=== PATIENT | female | born 1940 | race Caucasian/White ===

== ENCOUNTER 2018-10-29 07:24 | Outpatient (CLI) | payer MEDICARE, BC, SELFPAY ==
[2018-10-29 10:45] LABS: Anion Gap 6.4 mmol/L (3-11); BUN 16 mg/dL (7-18); CO2 31.6 mmol/L (21.0-32.0); CREATININE 0.99 mg/dL (0.55-1.02); Calcium 9.2 mg/dL (8.5-10.1); Chloride 105 mmol/L (98-107); Cholesterol 151 mg/dL (50-200); Estimated GFR 54.54 (mL/min/1.73m2); Glucose 98 mg/dL (70-100); HDL Cholesterol 64 mg/dL (40-60); LDL CHOLESTEROL 70 mg/dL (<100); Potassium 3.8 mmol/L (3.5-5.1); Sodium 143 mmol/L (136-145); Triglyceride 102 mg/dL (30-150)
== END 2018-10-29 07:44 ==
PROVIDERS: PCP Nurse Practitioner Family; Visit Provider Student in an Organized Health Care Education/Training Program
DX: E78.5 Hyperlipidemia, unspecified (principal); I10 Essential (primary) hypertension; I20.8 Other forms of angina pectoris
CPT/HCPCS: 36415; 80048; 80061; 83721

== ENCOUNTER 2018-11-24 07:38 | Outpatient (CLI) | payer MEDICARE, BC, SELFPAY ==
[2018-11-24 07:59] LABS: Abs Immature Grans 0.02 k/cumm (0.0-0.09); Absolute Basophil Count 0.04 k/cumm (0.0-0.2); Absolute Eosinophil Count 0.22 k/cumm (0.0-0.7); Absolute Lymphocyte Count 2.17 k/cumm (1.2-3.4); Absolute Monocyte Count 0.46 k/cumm (0.11-0.7); Absolute Neutrophil Count 4.04 k/cumm (1.2-6.7); Basophils % 0.6; Eosinophils % 3.2; HCT 42.9 % (36.0-46.0); HGB 13.8 g/dL (12.0-15.5); Immature Grans % 0.3; Lymphocytes % 31.2; Mean Corp. HGB Concentration 32.2 g/dL (32.0-36.0); Mean Corpuscular Volume 90.1 fL (80-95); Monocytes % 6.6; Neutrophils % 58.1; Platelet Count 274 x1000/uL (130-400); RBC 4.76 m/cumm (4.00-5.20); RBC Distribution Width 14.3 % (11.7-14.6); White Blood Cell Count 6.95 k/cumm (4.4-10.8)
== END 2018-11-24 07:58 ==
PROVIDERS: PCP Nurse Practitioner Family; Visit Provider Internal Medicine Gastroenterology
DX: K92.2 Gastrointestinal hemorrhage, unspecified (principal)
CPT/HCPCS: 36415; 85025

== ENCOUNTER → 2019-02-16 13:41 | Outpatient (BNVA) | payer MEDICARE, BC, SELFPAY | PROVIDERS: PCP Nurse Practitioner Family; Visit Provider Student in an Organized Health Care Education/Training Program | DX: I20.8 Other forms of angina pectoris (principal); Z95.818 Presence of other cardiac implants and grafts; I10 Essential (primary) hypertension; E78.5 Hyperlipidemia, unspecified | CPT/HCPCS: 99213 ==

== ENCOUNTER → 2020-02-07 11:03 | Outpatient (BNVA) | payer MEDICARE, BC, SELFPAY | PROVIDERS: PCP Nurse Practitioner Family; Referring Provider Nurse Practitioner Family; Visit Provider Internal Medicine Cardiovascular Disease | DX: I25.10 Atherosclerotic heart disease of native coronary artery without angina pectoris (principal); Z95.5 Presence of coronary angioplasty implant and graft; I10 Essential (primary) hypertension | CPT/HCPCS: 99204; 99215 ==

== ENCOUNTER 2020-09-14 21:16 | Outpatient (REF) | payer MEDICARE, BC, SELFPAY ==
[2020-09-14 18:37] LABS: ALT 38 U/L (14-59); AST 28 U/L (15-37); Albumin 3.5 g/dL (3.4-5.0); Alkaline Phosphatase 101 U/L (46-116); Anion Gap 8.6 mmol/L (3-11); BUN 17 mg/dL (7-18); Bilirubin, Total 0.7 mg/dL (0.2-1.0); CO2 29.4 mmol/L (21.0-32.0); CREATININE 1.07 mg/dL (0.55-1.02); Calcium 9.1 mg/dL (8.5-10.1); Calculated LDL 55 mg/dL (<100); Chloride 102 mmol/L (98-107); Cholesterol 137 mg/dL (<200); Glucose 115 mg/dL (74-106); HDL Cholesterol 61 mg/dL (40-60); Potassium 3.7 mmol/L (3.5-5.1); Sodium 140 mmol/L (136-145); Total Protein 6.7 g/dL (6.4-8.2); Triglyceride 108 mg/dL (<150)
== END 2020-09-14 21:36 ==
LOC: NCHCN 21:16
PROVIDERS: PCP Nurse Practitioner Family; Visit Provider Nurse Practitioner Family
DX: Z13.220 Encounter for screening for lipoid disorders (principal); I10 Essential (primary) hypertension
CPT/HCPCS: 80053; 80061

== ENCOUNTER → 2021-02-05 09:32 | Outpatient (BNVA) | payer MEDICARE, BC, SELFPAY | PROVIDERS: PCP Nurse Practitioner Family; Referring Provider Nurse Practitioner Family; Visit Provider Internal Medicine Cardiovascular Disease | DX: I25.10 Atherosclerotic heart disease of native coronary artery without angina pectoris (principal); Z95.5 Presence of coronary angioplasty implant and graft; I10 Essential (primary) hypertension | CPT/HCPCS: 99214 ==

== ENCOUNTER 2021-10-17 19:44 | Outpatient (REF) | payer MEDICARE, BC, SELFPAY ==
[2021-10-17 20:09] LABS: Anion Gap 7.6 mmol/L (3-11); BUN 16 mg/dL (7-18); CO2 28.4 mmol/L (21.0-32.0); CREATININE 0.9 mg/dL (0.55-1.02); Calcium 9.2 mg/dL (8.5-10.1); Chloride 104 mmol/L (98-107); Glucose 123 mg/dL (74-106); Potassium 3.7 mmol/L (3.5-5.1); Sodium 140 mmol/L (136-145)
== END 2021-10-17 19:45 | disposition home or self-care (01) ==
LOC: LBN 19:44
PROVIDERS: PCP Nurse Practitioner Family; Visit Provider Nurse Practitioner Family
DX: I10 Essential (primary) hypertension (principal)
CPT/HCPCS: 80048

== ENCOUNTER 2022-03-31 10:15 | Day surgery (SDC) | payer MEDICARE, BC, SELFPAY ==
[2022-03-31 10:47] VITALS: BP 148/69; PULSE 52; RESP 16; TEMP 36.5; O2SAT 98
[2022-03-31] MEDS: Tropicam./Phenyleph. (1/2.5%) 5 ML BTL OS ×3 (10:58→11:14)
--- NOTE | 2022-03-31 11:24 | W.ANESPRE ---
General Info Date of Service Date Performed: 03/31/22 Height: 5 ft 4 in Weight: 97.1 kg Body Mass Index (BMI): 36.7 Surgical Procedure: Operation Date: 03/31/22 13:40 Proposed Procedure Side Surgeon p Cataract Extraction with IOL Implant w/Glaucoma Stent Left Domenico Cristina MD Meds Allergies and Home Medications Allergies Allergy/AdvReac Type Severity Reaction Status Date / Time No Known Allergies Allergy Verified 03/31/22 10:55 Home Medication Medication Instructions Recorded aspirin 81 mg tablet,delayed 81 mg PO HS 03/15/15 release (Aspir-) omega-3 fatty acids 300 mg capsule 300 mg PO QAM 12/08/15 (Fish Oil) cholecalciferol (vitamin D3) 50 2,000 unit PO DAILY #30 tab-caps 11/26/16 mcg (2,000 unit) capsule (Vitamin D3) latanoprost 0.005 % eye drops 1 drp ophthalmic (eye) ONCE #1 drp 11/26/16 losartan 100 1 tab-cap PO DAILY #30 tab-caps 11/26/16 mg-hydrochlorothiazide 12.5 mg tablet (Hyzaar) metoprolol tartrate 25 mg tablet 25 mg PO BID #60 tab-caps 01/25/19 acetaminophen 500 mg tablet 1,000 mg PO DIRECTED PRN 03/28/22 Current Visit Medications: Current Medications Generic Name Dose Route Start Last Admin Trade Name Freq PRN Reason Stop Dose Admin Acetaminophen 1,000 mg 03/31/22 06:00 Acetaminophen 500 Mg Tab PO Q4H PRN PRN Miscellaneous Medication 0 ml 03/31/22 06:00 Prednisolone 1%, Moxifloxacin 0.5%, Nepafenac 0.1% 5ml Btl OS DIRECTED [facility] Miscellaneous Medication 0 ml 03/31/22 06:00 03/31/22 11:14 Tropicam./Phenyleph. (1/2.5%) 5 Ml Btl OS 1 drp DIRECTED NOEL Administration Tetracaine HCl 0 ml 03/31/22 06:00 Tetracaine 0.5% 4 Ml Btl OS DIRECTED [facility] Medical History Medical History (Updated 03/31/22 @ 10:55 by Jammie Velez) CAD (coronary artery disease) Cataract History of benign breast biopsy right HLD (hyperlipidemia) HTN (hypertension) Hx of fracture of ankle left 2000 Surgical History Surgical History (Updated 03/31/22 @ 10:55 by Jammie Velez) History of heart artery stent 2017 History of intestinal surgery clips for repair of rupture Hx of colonoscopy Hx of hysterectomy Tobacco Smoking/Tobacco Use Status: Never Alcohol Alcohol Intake: never Substance Use Substance use: Never Substance use type: does not use Vital Signs and Lab Results Vital Signs Most Recent Vital Signs in EMR: Most Recent Vital Signs Temp Pulse Resp BP Pulse Ox 36.5 C 52 L 16 148/69 H 98 03/31/22 10:47 03/31/22 10:47 03/31/22 10:47 03/31/22 10:47 03/31/22 10:47 Lab Results Blood Type / Crossmatch: No Data to Display Complete Blood Count: No Data to Display Complete Metabolic Panel: No Data to Display Liver Function Panel: No Data to Display Coagulation Panel: No Data to Display Cardiac Panel: No Data to Display Arterial Blood Gas: No Data to Display Venous Blood Gas: No Data to Display Pancreas Panel: No Data to Display Thyroid Panel: No Data to Display Infectious Disease: No Data to Display Blood Cultures: No Data to Display Toxicology Panel: No Data to Display Imaging and Studies Imaging and Studies Study information below may be from another EMR and interpreted by another provider. Please see original notes in EMR for more complete details. Stress Test Summary: 09/24/16 Impressions: Positive stress test after maximal exercise with reproduction of symptoms. Summary: 1. Myocardial perfusion imaging: There is a large sized, moderately intense, partially reversible defect involving the mid anterior and apical anterior, apical inferior, mid anterolateral, apical, apical lateral, and apical septal wall(s). and myocardial infarction and ischemia in the distribution of left anterior descending and left circumflex coronary artery. Overall ischemia: moderate. 2. The calculated left ventricular ejection fraction after stress: 51%. LV global systolic function is low normal. There is hypokinesis involving the apical wall(s) of the left ventricle. 3. Stress: The target heart rate was achieved. The heart rate response to stress is normal. There is a normal resting blood pressure with an appropriate response to stress. Stress-induced typical chest pain which resolved spontaneously. Exercise capacity is mildly diminished for age. Recommendations: 1. Cardiac catheterization should be performed in order to evaluate coronary artery disease. This procedure has been arranged and discussed with the patient. 2. Medical management is recommended. Cardiac Cath with stenting done 2016 Anesthesia Assessment and Plan Anesthesia History Personal History: No History of Anesthesia Complications Family History: No Family History of Anesthesia Complications Exercise Tolerance Exercise Tolerance: Metabolic Equivalents>4 Pertinent Negatives Pertinent Negatives: No Major Cardiovascular Symptoms or Complaints and No Major Pulmonary Symptoms or Complaints Cardiac & Pulmonary Exam Cardiac Exam: Normal S1/S2 Heart Sounds Pulmonary Exam: Clear Bilateral Breath Sounds Implantable Cardiac Device Does patient have a Pacemaker or an ICD?: No Airway Exam Known Difficult Airway: No Mallampati Class: 3 Mouth Opening: Narrow (< 3cm) Thyromental Distance: Greater than 3 cm Neck Range of Motion: Full ROM Neck Circumference: Normal Teeth Condition: Normal Dentition ASA Classification ASA Score: ASA 2 Emergency Case?: No NPO Status NPO Status: NPO Clears >2 hours, Solids >8 hours Anesthesia Plan Resuscitation Status: Full Code Anesthesia Technique: MAC Anesthesia Airway Planned: Natural Airway Monitors Used: Standard Monitors
[2022-03-31 11:38] VITALS: BMI 36.7
[2022-03-31] MEDS: Balanced Salt Soln.-PLUS 500 ML BAG (12:05)
[2022-03-31] MEDS: Tetracaine 0.5% 4 ML BTL OS (12:05)
[2022-03-31] MEDS: Lidocaine 1% Pres-Free 5 ML VIAL (12:06)
[2022-03-31] MEDS: Duovisc Viscoelastic System EACH 1 EACH (12:06)
[2022-03-31] MEDS: Lidocaine 2% Jelly 6 ML SYR (12:07)
[2022-03-31] MEDS: Povidone-Iodine Ophth 30 ML BTL (12:08)
[2022-03-31 12:31] VITALS: BP 163/56; PULSE 53; RESP 16; TEMP 36.2; O2SAT 98
--- NOTE | 2022-03-31 12:31 | ROE_ITS ---
Date of service: 03/31/22 Time of Service: 12:31 Operative Note Operative Note DATE OF PROCEDURE: 03/31/22 PRE-OP DIAGNOSIS: Nuclear/cortical cataract, left eye Primary open-angle glaucoma, left eye, moderate stage PROCEDURE: 1. Cataract extraction using phacoemulsification with intraocular lens implant, left eye 2. Insertion of multiple anterior segment aqueous drainage devices (Glaukos iStent inject x 1) into trabecular meshwork, left eye SURGEON: Domenico Cristina ANESTHESIA TYPE: Local By Surgeon and MAC Refer to Anesthesia Record ESTIMATED BLOOD LOSS: 0 PATHOLOGY: none sent COMPLICATIONS: None Patient was transported to: same day Patient's condition: stable Implants: 1. [employer] / [employer] Tecnis ZCB00 intraocular lens 2. Glaukos iStent inject trabecular micro-bypass stent x 1 Indications: 1. Progressive decreased vision due to cataract, left eye 2. Primary open angle glaucoma, left eye Procedure Description: CATARACT SURGERY OPERATIVE REPORT PREOPERATIVE DIAGNOSIS: Nuclear/cortical cataract, left eye primary open-angle glaucoma, left eye, moderate stage POSTOPERATIVE DIAGNOSIS: Same OPERATION: 1. Cataract extraction using phacoemulsification with posterior chamber intraocular lens implant, left eye. 2. Insertion of multiple anterior segment aqueous drainage devices (Glaukos iSt ent inject x 1) into trabecular meshwork, left eye IOL: IOL Behavior Interventionist/Model: [employer] / SONDRA Tecnis ZCB00 IOL Power: + 21.0 diopters IOL Serial Number: [id number] Optic Diameter: 6.0mm Haptic/Overall Diameter: 13.0mm PHACO INFO: Manohar [employer]ion Vision System with OZil and Active Fluidics Cumulative Dispersed Energy (CDE): 13.46 seconds TRABECULAR MICRO-BYPASS STENT INFO: Glaukos iStent inject x 1 Reference Number: [id number] Serial Number: [id number] SURGEON: Domenico Cristina MD, LYNNE ANESTHESIA: Monitored Anesthesia Care (MAC), with local sub-tenon's anesthetic infiltration COMPLICATIONS: None SPECIMENS: None INDICATIONS FOR PROCEDURE: The patient is a 81-year-old lady with history of moderate stage primary open- angle Kwell in the left eye, currently managed on 1 medication. She has developed a significant nuclear/cortical cataract of the left eye and desires cataract surgery and attempt to improve and maximize her vision. In addition, the option of glaucoma stent procedure was offered at the time of cataract surgery and she wished to proceed with this as well. PROCEDURE: The correct surgical eye was identified and marked as the left eye and the pupil was dilated in the preoperative area using mydriatics and cycloplegics. The dilated pupil size was 7.0 mm. Oral sedation was administered in the form of an Imprimis MKO Melt (midazolam 3mg/ketamine 25mg/ondansetron 2mg). The patient was brought to the operating room where cardiopulmonary monitoring was instituted and surgical time-out was performed, confirming the correct operative eye and IOL power. Topical anesthesia was administered and ophthalmic povidone-iodine 5% was instilled into the conjunctival fornices. Lidocaine gel was applied to the cornea and the alejandra-ocular area was prepped with Betadine 10% solution and draped in the usual sterile fashion for intraocular surgery, including an aperture drape. A Tegaderm transparent film dressing was cut in half and used to cover the lashes and lid margins. Care was taken to sequester the lashes and lid margins under the Tegaderm dressing. A lid speculum was placed between the lids of the operative eye and the Manohar Lux[employer] Revalia operating microscope was maneuvered into position. Sandi scissors were then used to make a conjunctival buttonhole approximately 6mm posterior to the limbus in the inferonasal quadrant. Blunt dissection was carried out to expose bare sclera, and a blunt-tipped sub-tenon?s anesthesia cannula was introduced and passed posteriorly along the globe where non-pres erved plain lidocaine was injected into posterior sub-Tenon?s space. A sideport knife was used to make a paracentesis port superior/superiortemporally. Intraocular phenylephrine/lidocaine was injected into the anterior chamber. The anterior chamber was then filled with viscoelastic. A 2.4mm keratome knife was used to create a half-thickness groove at the limbus and then to construct a three-plane near-clear corneal tunnel extending 2.0mm into clear cornea in the temporal position. . A flap was raised on the anterior capsule and capsulorhexis forceps were used to complete a continuous curvilinear capsulorhexis of 5.5 mm. Balanced salt solution was then used to perform cortical cleaving hydrodissection and nuclear hydrodelineation until the lens could be freely rotated within the capsular bag. The lens nucleus was then disassembled and removed within the capsular bag and iris plane using phacoemulsification. Residual cortical material was removed using the 45-degree angled silicone I/A tip with 0.3mm port. The posterior capsule was carefully polished to remove as much residual lens epithelial cells as safely possible. The capsular bag was then inflated and the anterior chamber deepened with viscoelastic. The lens implant described above was inserted into the capsular bag using the SONDRA [place] Injector. A Kuglen hook was used to dial the IOL into position. The anterior chamber was then slightly over-filled with viscoelastic. The microsope and the patient's head were tilted into the ideal position for viewing of the anterior chamber angle. Viscoelastic was placed on the cornea followed by a surgical gonionlens, and the anterior chamber angle landmarks were identified. The Shipster iStent inject handpiece was introduced into the anterior chamber and the insertion sleeve was retracted once the injector was distal to the pupillary margin. The trocar was advanced through the central portion of the trabecular meshwork and into the back wall of Schlemm's canal in the superiornasal quadrant, with care taken to ensure the micro-insertion tube was perpendicular to the trabecular meshwork. The trabecular meshwork was lightly dimpled and the stent was injected without difficulty. The patient complained of significant pain and pressure with insertion of the stent. Additional viscoelastic was injected into the eye and the first to be in good position. An attempt was made to pass the injector into the eye to inject the second stent, but the patient had significant pain and pressure sensation and could not hold her eye still. We elected to abort insertion of a second stent. The stent was then examined and noted to be in good position within the trabecular meshwork.The microscope and the patients head were returned to the normal co axial position. Viscoelatic was then removed from the anterior chamber using the I/A handpiece. Blanching of the nasal conjunctiva was clearly evident due to outflow from the ore crushing dust collector channels. The lens implant was noted to center nicely within the capsular bag. The incisions were stromally hydrated, and the anterior chamber was reformed using BSS. Then 0.5cc of moxifloxacin 1.0mg/ml were injected into the capsular bag and anterior chamber. The incisions were checked with a Weck spear and found to be secure. Several drops of ophthalmic povidone-iodine 5% were then applied to the eye followed by two drops of Imprimis combination prednisolone/moxifloxacin/nepafenac solution. The drapes were removed and a clear plastic protective eye shield was placed over the eye. The patient was then returned to Same Day Surgery in stable condition.
--- NOTE | 2022-03-31 12:31 | W.PM.DSUDISC ---
Discharge Plan Disposition Patient Disposition: HOME Condition: Good Discharge Details Attending Provider: Domenico Cristina Primary Care Provider: Sary Crisostomo Home Meds and New Rx's Prescriptions: No Action losartan-hydrochlorothiazide [Hyzaar] 1 EACH tablet 1 tab-cap PO DAILY Qty: 30 latanoprost 2.5 ML drops 1 drp Ophthalmic ONCE Qty: 1 cholecalciferol (vitamin D3) [Vitamin D3] 2,000 UNIT capsule 2,000 unit PO DAILY Qty: 30 Rosuvastatin Calcium 40 MG tablet 40 mg PO HS 90 Days Qty: 90 3RF metoprolol tartrate 25 mg tablet 25 mg PO BID Qty: 60 11RF aspirin [Aspir-81] 81 MG tablet,delayed release (DR/EC) 81 mg PO HS Fish Oil 300 MG capsule 300 mg PO QAM acetaminophen 500 mg Tablet 1,000 mg PO DIRECTED PRN Discharge Instructions Stand Alone Forms: Post-op Topical Cataract, Press Ganey (DSU) Discharge Orders Discharge Orders: Discharge Order (Routine); Ordered 03/31/22 Ordered By: Domenico Cristina
--- NOTE | 2022-03-31 12:46 | W.ANESPOSTOP ---
Postoperative Evaluation Date, Time and Location Date Performed: 03/31/22 Time Performed: 12:35 Patient Location: Day Surgery Unit Vital Signs Most Recent Imported Vital Signs: Most Recent Vital Signs Temp Pulse Resp BP Pulse Ox 36.2 C L 53 L 16 163/56 H 98 03/31/22 12:31 03/31/22 12:31 03/31/22 12:31 03/31/22 12:31 03/31/22 12:31 Pain Score Most Recent Pain Score: Most Recent Pain Score Pain Level 0 03/31/22 12:31 Assessment Mental Status: Awake (Alert & Oriented to Patient Baseline) Airway and Respiratory Function: Patent airway with normal (patient baseline) respiratory exam Cardiovascular Function: Hemodynamically Stable Hydration Status: Adequately Hydrated Nausea & Vomiting: No Nausea or Vomiting Pain: Pt. Denies Any Pain Peripheral Nerve Block: Patient did not receive a nerve block
== END 2022-03-31 12:50 | disposition home or self-care (01) ==
LOC: SUR 10:15
PROVIDERS: PCP Nurse Practitioner Family; Visit Provider Ophthalmology
PROC: (CPT 66991; principal; 2022-03-31 13:30)
DX: H25.012 Cortical age-related cataract, left eye (principal); H40.1122 Primary open-angle glaucoma, left eye, moderate stage; I25.10 Atherosclerotic heart disease of native coronary artery without angina pectoris; E78.5 Hyperlipidemia, unspecified; I10 Essential (primary) hypertension
CPT/HCPCS: 66991; V2632; C1783

== ENCOUNTER 2022-04-14 11:10 | Day surgery (SDC) | payer MEDICARE, BC, SELFPAY ==
[2022-04-14] MEDS: Tropicam./Phenyleph. (1/2.5%) 5 ML BTL OD ×3 (11:28→11:45)
[2022-04-14 11:29] VITALS: BP 145/88; PULSE 61; RESP 16; TEMP 36.5; O2SAT 99
--- NOTE | 2022-04-14 11:35 | W.ANESPRE ---
General Info Date of Service Date Performed: 04/14/22 Height: 5 ft 4 in Weight: 96.4 kg Body Mass Index (BMI): 36.4 Surgical Procedure: Operation Date: 04/14/22 14:40 Proposed Procedure Side Surgeon p Cataract Extraction with IOL Implant w/Glaucoma Stent & Goniotomy Right Domenico Cristina MD Meds Allergies and Home Medications Allergies Allergy/AdvReac Type Severity Reaction Status Date / Time No Known Allergies Allergy Verified 04/14/22 11:24 Home Medication Medication Instructions Recorded aspirin 81 mg tablet,delayed 81 mg PO HS 03/15/15 release (Aspir-) omega-3 fatty acids 300 mg capsule 300 mg PO QAM 12/08/15 (Fish Oil) cholecalciferol (vitamin D3) 50 2,000 unit PO DAILY #30 tab-caps 11/26/16 mcg (2,000 unit) capsule (Vitamin D3) latanoprost 0.005 % eye drops 1 drp ophthalmic (eye) ONCE #1 drp 11/26/16 losartan 100 1 tab-cap PO DAILY #30 tab-caps 11/26/16 mg-hydrochlorothiazide 12.5 mg tablet (Hyzaar) metoprolol tartrate 25 mg tablet 25 mg PO BID #60 tab-caps 01/25/19 acetaminophen 500 mg tablet 1,000 mg PO DIRECTED PRN 03/28/22 Current Visit Medications: Current Medications Generic Name Dose Route Start Last Admin Trade Name Freq PRN Reason Stop Dose Admin Acetaminophen 1,000 mg 04/14/22 06:00 Acetaminophen 500 Mg Tab PO Q4H PRN PRN Miscellaneous Medication 0 ml 04/14/22 06:00 Prednisolone 1%, Moxifloxacin 0.5%, Nepafenac 0.1% 5ml Btl OD DIRECTED NOEL Miscellaneous Medication 0 ml 04/14/22 06:00 04/14/22 11:28 Tropicam./Phenyleph. (1/2.5%) 5 Ml Btl OD 1 drp DIRECTED NOEL Administration Tetracaine HCl 0 ml 04/14/22 06:00 Tetracaine 0.5% 4 Ml Btl OD DIRECTED NOEL PFSH Active Problems Active Problems: Problem Status Onset Code Primary open-angle glaucoma, left eye, moderate stage H40.1122 Nuclear sclerotic cataract of left eye H25.12 Cortical cataract of left eye H26.9 Medical History Medical History CAD (coronary artery disease) Cataract History of benign breast biopsy right HLD (hyperlipidemia) HTN (hypertension) Hx of fracture of ankle left 2000 Surgical History Surgical History History of heart artery stent 2017 History of intestinal surgery clips for repair of rupture Hx of colonoscopy Hx of hysterectomy Tobacco Smoking/Tobacco Use Status: Never Alcohol Alcohol Intake: never Substance Use Substance use: Never Substance use type: does not use Vital Signs and Lab Results Vital Signs Most Recent Vital Signs in EMR: Most Recent Vital Signs Temp Pulse Resp BP Pulse Ox 36.5 C 61 16 145/88 H 99 04/14/22 11:29 04/14/22 11:29 04/14/22 11:29 04/14/22 11:29 04/14/22 11:29 Lab Results Blood Type / Crossmatch: No Data to Display Complete Blood Count: No Data to Display Complete Metabolic Panel: No Data to Display Liver Function Panel: No Data to Display Coagulation Panel: No Data to Display Cardiac Panel: No Data to Display Arterial Blood Gas: No Data to Display Venous Blood Gas: No Data to Display Pancreas Panel: No Data to Display Thyroid Panel: No Data to Display Infectious Disease: No Data to Display Blood Cultures: No Data to Display Toxicology Panel: No Data to Display Imaging and Studies Imaging and Studies Study information below may be from another EMR and interpreted by another provider. Please see original notes in EMR for more complete details. Stress Test Summary: 09/24/16 Impressions: Positive stress test after maximal exercise with reproduction of symptoms. Summary: 1. Myocardial perfusion imaging: There is a large sized, moderately intense, partially reversible defect involving the mid anterior and apical anterior, apical inferior, mid anterolateral, apical, apical lateral, and apical septal wall(s). and myocardial infarction and ischemia in the distribution of left anterior descending and left circumflex coronary artery. Overall ischemia: moderate. 2. The calculated left ventricular ejection fraction after stress: 51%. LV global systolic function is low normal. There is hypokinesis involving the apical wall(s) of the left ventricle. 3. Stress: The target heart rate was achieved. The heart rate response to stress is normal. There is a normal resting blood pressure with an appropriate response to stress. Stress-induced typical chest pain which resolved spontaneously. Exercise capacity is mildly diminished for age. Recommendations: 1. Cardiac catheterization should be performed in order to evaluate coronary artery disease. This procedure has been arranged and discussed with the patient. 2. Medical management is recommended. Cardiac Cath with stenting done 2016 Anesthesia Assessment and Plan Anesthesia History Personal History: No History of Anesthesia Complications Family History: No Family History of Anesthesia Complications Exercise Tolerance Exercise Tolerance: Metabolic Equivalents>4 Pertinent Negatives Pertinent Negatives: No Symptoms of GERD Cardiac & Pulmonary Exam Cardiac Exam: Normal S1/S2 Heart Sounds Pulmonary Exam: Clear Bilateral Breath Sounds Implantable Cardiac Device Does patient have a Pacemaker or an ICD?: No Airway Exam Known Difficult Airway: No Mallampati Class: 3 Mouth Opening: Narrow (< 3cm) Thyromental Distance: Greater than 3 cm Neck Range of Motion: Full ROM Neck Circumference: Normal Teeth Condition: Normal Dentition ASA Classification ASA Score: ASA 2 Emergency Case?: No NPO Status NPO Status: NPO Clears >2 hours, Solids >8 hours Anesthesia Plan Resuscitation Status: Full Code Anesthesia Technique: MAC Anesthesia Airway Planned: Natural Airway Monitors Used: Standard Monitors Preoperative Comments:: Wants [email or web address] this time
[2022-04-14 11:42] VITALS: BMI 36.4
[2022-04-14] MEDS: Tetracaine 0.5% 4 ML BTL OD (12:05)
[2022-04-14] MEDS: Lidocaine 2% Jelly 6 ML SYR (12:08)
[2022-04-14] MEDS: Balanced Salt Soln.-PLUS 500 ML BAG (12:08)
[2022-04-14] MEDS: Povidone-Iodine Ophth 30 ML BTL (12:09)
[2022-04-14 12:30] VITALS: BP 136/61; PULSE 57; RESP 18; TEMP 36; O2SAT 97
--- NOTE | 2022-04-14 12:30 | W.PM.DSUDISC ---
Discharge Plan Disposition Patient Disposition: HOME Condition: Good Discharge Details Attending Provider: Domenico Cristina Primary Care Provider: Sary Crisostomo Home Meds and New Rx's Prescriptions: No Action losartan-hydrochlorothiazide [Hyzaar] 1 EACH tablet 1 tab-cap PO DAILY Qty: 30 latanoprost 2.5 ML drops 1 drp Ophthalmic ONCE Qty: 1 cholecalciferol (vitamin D3) [Vitamin D3] 2,000 UNIT capsule 2,000 unit PO DAILY Qty: 30 Rosuvastatin Calcium 40 MG tablet 40 mg PO HS 90 Days Qty: 90 3RF metoprolol tartrate 25 mg tablet 25 mg PO BID Qty: 60 11RF aspirin [Aspir-81] 81 MG tablet,delayed release (DR/EC) 81 mg PO HS Fish Oil 300 MG capsule 300 mg PO QAM acetaminophen 500 mg Tablet 1,000 mg PO DIRECTED PRN Discharge Instructions Stand Alone Forms: Post-op Topical Cataract, Press Ganey (DSU) Discharge Orders Discharge Orders: Discharge Order (Routine); Ordered 04/14/22 Ordered By: Domenico Cristina DS: Diagnosis Discharge Diagnosis (1) Primary open-angle glaucoma, right eye, moderate stage: Status: Chronic (2) Nuclear sclerotic cataract of right eye: Status: Resolved (3) Cortical cataract of right eye: Status: Resolved
--- NOTE | 2022-04-14 12:31 | ROE_ITS ---
Date of service: 04/14/22 Time of Service: 13:33 Operative Note Operative Note DATE OF PROCEDURE: 04/14/22 PRE-OP DIAGNOSIS: Nuclear/cortical cataract, right eye Primary open-angle glaucoma, right eye, moderate stage POST-OP DIAGNOSIS: same PROCEDURE: 1. Cataract extraction using phacoemulsification with intraocular lens implant, right eye 2. Insertion of multiple anterior segment aqueous drainage devices (Glaukos iStent inject x 2) into trabecular meshwork, right eye SURGEON: Domenico Cristina ANESTHESIA TYPE: Local By Surgeon and MAC Refer to Anesthesia Record PATHOLOGY: none sent COMPLICATIONS: None Patient was transported to: same day Patient's condition: stable Implants: 1. [employer] / [employer] Tecnis [id number] intraocular lens 2. Glaukos iStent inject trabecular micro-bypass stent x 2 Indications: 1. Progressive decreased vision due to cataract, right eye 2. Primary open angle glaucoma, right eye Procedure Description: CATARACT SURGERY OPERATIVE REPORT PREOPERATIVE DIAGNOSIS: Nuclear/cortical cataract, right eye Primary open-angle glaucoma, right eye, moderate stage POSTOPERATIVE DIAGNOSIS: Same OPERATION: 1. Cataract extraction using phacoemulsification with posterior chamber intraocular lens implant, right eye. 2. Insertion of multiple anterior segment aqueous drainage devices (Glaukos iStent inject x 2) into trabecular meshwork, right eye IOL: IOL Manager Resort/Model: [employer] Vision / SONDRA Tecnis ZCB00 IOL Power: + 20.50 diopters IOL Serial Number: [id number] Optic Diameter: 6.0mm Haptic/Overall Diameter: 13.0mm PHACO INFO: Manohar [employer] Vision System with OZil and Active Fluidics Cumulative Dispersed Energy (CDE): 11.47 seconds TRABECULAR MICRO-BYPASS STENT INFO: Glaukos iStent inject x 2 Reference Number: [id number] Serial Number: [id number] SURGEON: Domenico Cristina MD, LYNNE ANESTHESIA: Monitored Anesthesia Care (MAC), with local sub-tenon's anesthetic infiltration COMPLICATIONS: None SPECIMENS: None INDICATIONS FOR PROCEDURE: The patient is a 81-year-old lady with history of primary open-angle glaucoma, moderate stage, maintained on 1 topical glaucoma medication. She has developed symptomatic bilateral nuclear and cortical cataract. She has already undergone cataract surgery in the left eye with implantation of glaucoma stent. She now presents for cataract surgery in the right eye with glaucoma stent implantation as well. PROCEDURE: The correct surgical eye was identified and marked as the right eye and the pupil was dilated in the preoperative area using mydriatics and cycloplegics. The dilated pupil size was 7.0 mm. Oral sedation was administered in the form of an Imprimis MKO Melt (midazolam 3mg/ketamine 25mg/ondansetron 2mg). The patient was brought to the operating room where cardiopulmonary monitoring was instituted and surgical time-out was performed, confirming the correct operative eye and IOL power. Topical anesthesia was administered and ophthalmic povidone-iodine 5% was instilled into the conjunctival fornices. Lidocaine gel was applied to the cornea and the alejandra-ocular area was prepped with Betadine 10% solution and draped in the usual sterile fashion for intraocular surgery, including an aperture drape. A Tegaderm transparent film dressing was cut in half and used to cover the lashes and lid margins. Care was taken to sequester the lashes and lid margins under the Tegaderm dressing. A lid speculum was placed between the lids of the operative eye and the Manohar LuxOR Revalia operating microscope was maneuvered into position. Sandi scissors were then used to make a conjunctival buttonhole approximately 6mm posterior to the limbus in the inferonasal quadrant. Blunt dissection was carried out to expose bare sclera, and a blunt-tipped sub-tenon?s anesthesia cannula was introduced and passed posteriorly along the globe where non- preserved plain lidocaine was injected into posterior sub-Tenon?s space. A sideport knife was used to make a paracentesis port inferiortemporally. Intraocular phenylephrine/lidocaine was injected into the anterior chamber. The anterior chamber was then filled with viscoelastic. A 2.4mm keratome knife was used to construct a 2-plane near-clear corneal tunnel extending 2.0mm into clear cornea superiortemporally. . A flap was raised on the anterior capsule and capsulorhexis forceps were used to complete a continuous curvilinear capsulorhexis of 5.0 mm. Balanced salt solution was then used to perform cortical cleaving hydrodissection and nuclear hydrodelineation until the lens could be freely rotated within the capsular bag. The lens nucleus was then disassembled and removed within the capsular bag and iris plane using phacoemulsification. Residual cortical material was removed using the 45-degree angled silicone I/A tip with 0.3mm port. The posterior capsule was carefully polished to remove as much residual lens epithelial cells as safely possible. The capsular bag was then inflated and the anterior chamber deepened with viscoelastic. The lens implant described above was inserted into the capsular bag using the SONDRA [place] Injector. A Kuglen hook was used to dial the IOL into position. The anterior chamber was then slightly over-filled with viscoelastic. The microsope and the patient's head were tilted into the ideal position for viewing of the anterior chamber angle. Viscoelastic was placed on the cornea followed by a surgical gonionlens, and the anterior chamber angle landmarks were identified. The Pivto iStent inject handpiece was introduced into the anterior chamber and the insertion sleeve was retracted once the injector was distal to the pupillary margin. The trocar was advanced through the central portion of the trabecular meshwork and into the back wall of Schlemm's canal in the inferonasal quadrant, with care taken to ensure the micro-insertion tube was perpendicular to the trabecular meshwork. The trabecular meshwork was lightly dimpled and the stent was injected without difficulty. The same procedure was then performed in the superiornasal quadrant. Both stents were then examined and noted to be in good position within the trabecular meshwork. The microscope and the patients head were returned to the normal coaxial position. Viscoelatic was then removed from the anterior chamber using the I/A handpiece. The lens implant was noted to center nicely within the capsular bag. The incisions were stromally hydrated, and the anterior chamber was reformed using BSS. Then 0.5cc of moxifloxacin 1.0mg/ml were injected into the capsular bag and anterior chamber. The incisions were checked with a Weck spear and found to be secure. Several drops of ophthalmic povidone-iodine 5% were then applied to the eye followed by two drops of Imprimis combination prednisolone/moxifloxacin/nepafenac solution. The drapes were removed and a clear plastic protective eye shield was placed over the eye. The patient was then returned to Same Day Surgery in stable condition.
--- NOTE | 2022-04-14 12:39 | W.ANESPOSTOP ---
Postoperative Evaluation Date, Time and Location Date Performed: 04/14/22 Time Performed: 12:40 Patient Location: Day Surgery Unit Vital Signs Most Recent Imported Vital Signs: Most Recent Vital Signs Temp Pulse Resp BP Pulse Ox 36.5 C 61 16 145/88 H 99 04/14/22 11:29 04/14/22 11:29 04/14/22 11:29 04/14/22 11:29 04/14/22 11:29 Assessment Mental Status: Awake (Alert & Oriented to Patient Baseline) Airway and Respiratory Function: Patent airway with normal (patient baseline) respiratory exam Cardiovascular Function: Hemodynamically Stable Hydration Status: Adequately Hydrated Nausea & Vomiting: No Nausea or Vomiting Pain: Pt. Denies Any Pain Peripheral Nerve Block: Patient did not receive a nerve block
[2022-04-14 13:00] VITALS: BP 121/69; PULSE 60; RESP 18; TEMP 36; O2SAT 100
== END 2022-04-14 13:10 | disposition home or self-care (01) ==
PROVIDERS: PCP Nurse Practitioner Family; Visit Provider Ophthalmology
PROC: (CPT 66991; principal; 2022-04-14 14:30)
DX: H25.11 Age-related nuclear cataract, right eye (principal); H40.1112 Primary open-angle glaucoma, right eye, moderate stage
CPT/HCPCS: 66991; V2632; C1783

== ENCOUNTER 2022-07-10 02:47 | Emergency (ER) | payer MEDICARE, BC, SELFPAY ==
[2022-07-10 02:55] VITALS: BP 172/66; PULSE 59; RESP 24; TEMP 36.6; O2SAT 98
--- NOTE | 2022-07-10 03:07 | ED.GENADUL_ITS ---
Discharge Plan Disposition Patient Disposition: HOME Condition: Stable Discharge Details Clinical Impression: Umbilical pain, Cellulitis, umbilical Primary Care Provider: Sary Crisostomo ED Provider: Pillo Navas Home Meds and New Rx's Prescriptions: New sulfamethoxazole-trimethoprim [Bactrim DS] 800-160 mg tablet 1 tab PO BID Qty: 14 0RF amoxicillin-pot clavulanate 875-125 mg tablet 1 tab PO BID Qty: 14 0RF Continued losartan-hydrochlorothiazide [Hyzaar] 1 EACH tablet 1 tab-cap PO DAILY Qty: 30 cholecalciferol (vitamin D3) [Vitamin D3] 2,000 UNIT capsule 2,000 unit PO DAILY Qty: 30 Rosuvastatin Calcium 40 MG tablet 40 mg PO HS 90 Days Qty: 90 3RF metoprolol tartrate 25 mg tablet 25 mg PO BID Qty: 60 11RF aspirin [Aspir-81] 81 MG tablet,delayed release (DR/EC) 81 mg PO HS Fish Oil 300 MG capsule 300 mg PO QAM acetaminophen 500 mg Tablet 1,000 mg PO DIRECTED PRN Discharge Instructions Additional Instructions: You are being treated for an infection of the belly button if not improving within a week follow up with your primary care provider if you feel more ill, have fevers or severe worsening of pain return to the emergency department Medical Decision Making 81 yo female with hx of HTN, hld, who comes in with cc of umbilical pain and drainage. She states she started to have discomfort and redness of her umbilicus yesterday and tonight she had drainage that she said was maravilla come from the umbilicus. After the drainage started her pain resolved. She denies fevers, chills, and other than the umibilicus denies other abdominal pain, no n/v. She states she has had drainage form her umbilicus in the past but it has been clear before. She arrives stable and appears well. Her abdomen is soft and nontender. She does have very mild erythema of the umbilicus and no palpable abscess though given the described drainage suspect she has a small abscess and possibly a cyst given she has had drainage before. She feels well, has no pain and so do not feel labs or imaging indicated, unlikely deep abscess and unlikely sepsis given well appearance. Will place on oral antibiotics. She is comfortable with d/c and will f/u with pcp if not improving, strict return precautions also given Differential Diagnosis Differential Diagnosis: abscess, cyst, cellulitis HPI General Mode of arrival: ambulatory . Date/Time Provider Initiated Documentation: 07/10/22 02:48 . Limitations to Documentation: no limitations . Information obtained by: patient . History of Present Illness 81 year old F presents to the emergency department with the chief complaint of umbilical drainage, described as mild, Patient reports no radiation. Patient started experiencing this day(s) (1) No relieving factors improve symptom(s), No exacerbating factors reported . Patient notes no other symptoms.. Patient did receive the following treatments prior to arrival, none Related Data Home Medications Medication Instructions Recorded Confirmed aspirin 81 mg tablet,delayed 81 mg PO HS 03/15/15 04/14/22 release (Aspir-) omega-3 fatty acids 300 mg capsule 300 mg PO QAM 12/08/15 04/14/22 (Fish Oil) cholecalciferol (vitamin D3) 50 2,000 unit PO DAILY #30 tab-caps 11/26/16 04/14/22 mcg (2,000 unit) capsule (Vitamin D3) losartan 100 1 tab-cap PO DAILY #30 tab-caps 11/26/16 04/14/22 mg-hydrochlorothiazide 12.5 mg tablet (Hyzaar) metoprolol tartrate 25 mg tablet 25 mg PO BID #60 tab-caps 01/25/19 04/14/22 acetaminophen 500 mg tablet 1,000 mg PO DIRECTED PRN 03/28/22 04/14/22 amoxicillin 875 mg-potassium 1 tab PO BID #14 tabs 07/10/22 clavulanate 125 mg tablet sulfamethoxazole 800 1 tab PO BID #14 tabs 07/10/22 mg-trimethoprim 160 mg tablet (Bactrim DS) Previous Rx's Medication Instructions Recorded metoprolol tartrate 25 mg tablet 25 mg PO BID #60 tab-caps 01/25/19 amoxicillin 875 mg-potassium 1 tab PO BID #14 tabs 07/10/22 clavulanate 125 mg tablet sulfamethoxazole 800 1 tab PO BID #14 tabs 07/10/22 mg-trimethoprim 160 mg tablet (Bactrim DS) Allergies Allergy/AdvReac Type Severity Reaction Status Date / Time No Known Allergies Allergy Verified 04/14/22 11:24 General Stated Complaint: Abd Prob RASHAD: 2 Review of Systems All systems reviewed & are unremarkable except as noted in HPI and below Constitutional Constitutional: Denies chills, Denies fever(s) and Denies weakness Cardiovascular Cardiovascular: Denies chest pain and Denies dyspnea Respiratory Respiratory: Denies cough and Denies dyspnea Gastrointestinal Gastrointestinal: Denies abdominal pain, Denies nausea and Denies vomiting Genitourinary Genitourinary: Denies dysuria Musculoskeletal Musculoskeletal: Denies joint swelling Neurologic Neurologic: Denies weakness PFSH All Active Problems (Updated 07/10/22 @ 03:08 by Pillo Navas MD) Umbilical pain (Acute) Cellulitis, umbilical (Acute) Primary open-angle glaucoma, right eye, moderate stage (Chronic) Primary open-angle glaucoma, left eye, moderate stage (Chronic) Medical History (Updated 07/10/22 @ 03:08 by Pillo Navas MD) CAD (coronary artery disease) Cataract History of benign breast biopsy right HLD (hyperlipidemia) HTN (hypertension) Hx of fracture of ankle left 2000 Surgical History (Updated 04/14/22 @ 12:31 by Domenico Cristina MD) History of heart artery stent 2016 History of intestinal surgery clips for repair of rupture Hx of colonoscopy Hx of hysterectomy Social History Smoking/Tobacco Use Status: Never Smoking risk assessment performed?: Yes Alcohol Intake: never Drug use: Never Substance use type: does not use Do you feel safe at home: Yes Do you feel safe in your relationship?: Yes Exam Const General: no acute distress Orientation: alert HENMT Head: normal to inspection Ears: external ears normal General nose exam: external nose normal Mouth: moist mucous membranes Eyes General: appearance normal, both eyes and all related structures Neck Neck: normal visual inspection Resp Effort & Inspection: normal respiratory effort and able to speak in complete sentences Cardio Rate: regular rate GI Palpation: not firm, no guarding and nontender Skin General skin exam: erythema Neuro General: patient alert and patient oriented x3 Extrem General: normal to inspection Psych Mental Status: mental status grossly normal Course Vital Signs Vital signs: Vital Signs Temperature 36.6 C 07/10/22 02:55 Pulse 59 L 07/10/22 02:55 Respiratory Rate 24 07/10/22 02:55 Blood Pressure 172/66 H 07/10/22 02:55 Pulse Oximetry 98 07/10/22 02:55 Temperature 36.6 C 07/10/22 02:55 Temperature Source Temporal Artery Scan 07/10/22 02:55 Pulse 59 L 07/10/22 02:55 Respiratory Rate 24 07/10/22 02:55 Respiratory Effort Non-Labored 07/10/22 02:59 Blood Pressure 172/66 H 07/10/22 02:55 Blood Pressure Position Sitting 07/10/22 02:55 Pulse Oximetry 98 07/10/22 02:55 Oxygen Delivery Method Room Air 07/10/22 02:55 Oxygen Flow Rate 0 07/10/22 02:55 Pain Level 3 07/10/22 02:59
[2022-07-10] MEDS: Sulfameth/Trimeth DS TAB 1 TAB PO (03:14)
[2022-07-10] MEDS: Amoxicillin 875/Clav. 125 TAB PO (03:14)
[2022-07-10 03:16] VITALS: BP 146/74; PULSE 62; RESP 18; TEMP 36.6; O2SAT 98
== END 2022-07-10 03:20 | disposition home or self-care (01) ==
LOC: ER 04:00
PROVIDERS: Emergency Provider Emergency Medicine; PCP Nurse Practitioner Family
DX: R10.9 Unspecified abdominal pain (principal); L03.311 Cellulitis of abdominal wall
CPT/HCPCS: 99283

== ENCOUNTER 2022-10-21 15:58 | Outpatient (REF) | payer MEDICARE, BC, SELFPAY ==
[2022-10-21 16:05] LABS: Anion Gap 9.7 mmol/L (3-11); BUN 14 mg/dL (7-18); CO2 27.3 mmol/L (21.0-32.0); CREATININE 0.8 mg/dL (0.55-1.02); Calcium 9.7 mg/dL (8.5-10.1); Chloride 105 mmol/L (98-107); Estimated GFR 74.44 (mL/min/1.73m2); Glucose 124 mg/dL (74-106); Potassium 4.1 mmol/L (3.5-5.1); Sodium 142 mmol/L (136-145)
== END 2022-10-21 15:59 | disposition home or self-care (01) ==
LOC: NCHCN 15:58
PROVIDERS: PCP Nurse Practitioner Family; Visit Provider Nurse Practitioner Family
DX: I10 Essential (primary) hypertension (principal)
CPT/HCPCS: 80048

== ENCOUNTER 2023-02-03 08:04 | Outpatient (CLI) | payer MEDICARE, BC, SELFPAY ==
--- NOTE | 2023-02-03 08:00 | RT.EKG_ITS ---
APPROVED REPORT Exam: Resting ECG Reason for Exam: cad Patient Location: O HR:52 bpm ECG Measurements Heart Rate 52 AXIS ME 190 P 44 QRSd 107 QRS 31 QT 446 T 51 QTc 415 Conclusion Sinus rhythm...normal P axis, V-rate 50- 99 Otherwise normal ECG
== END 2023-02-03 08:05 | disposition home or self-care (01) ==
LOC: DI.CARD 08:04
PROVIDERS: PCP Nurse Practitioner Family; Visit Provider Internal Medicine Cardiovascular Disease
DX: I25.10 Atherosclerotic heart disease of native coronary artery without angina pectoris (principal)
CPT/HCPCS: 93010

== ENCOUNTER → 2023-02-03 09:42 | Outpatient (BNVA) | payer MEDICARE, BC, SELFPAY | PROVIDERS: PCP Nurse Practitioner Family; Referring Provider Nurse Practitioner Family; Visit Provider Internal Medicine Cardiovascular Disease | DX: Z95.5 Presence of coronary angioplasty implant and graft (principal); I10 Essential (primary) hypertension; I25.10 Atherosclerotic heart disease of native coronary artery without angina pectoris | CPT/HCPCS: 93005; 99213 ==

== ENCOUNTER 2023-09-16 19:11 | Outpatient (REF) | payer MEDICARE, BC, SELFPAY ==
[2023-09-16 15:42] LABS: BUN 14 mg/dL (7-18); Calcium 9.7 mg/dL (8.5-10.1); Calculated LDL 55 mg/dL (<100); Chloride 105 mmol/L (98-107); Cholesterol 152 mg/dL (<200); Glucose 91 mg/dL (74-106); HDL Cholesterol 73 mg/dL (40-60); Potassium 4.1 mmol/L (3.5-5.1); Sodium 140 mmol/L (136-145); Triglyceride 124 mg/dL (<150)
[2023-09-16 15:55] LABS: Hemoglobin A1C 5.8 % (<5.7)
== END 2023-09-16 19:12 | disposition home or self-care (01) ==
LOC: NCHCN 19:11
PROVIDERS: PCP Nurse Practitioner Family; Visit Provider Nurse Practitioner Family
DX: I10 Essential (primary) hypertension (principal); E78.5 Hyperlipidemia, unspecified; R73.09 Other abnormal glucose
CPT/HCPCS: 80048; 80061; 83036

== ENCOUNTER → 2024-03-24 14:31 | Outpatient (CLI) | payer MEDICARE, BC, SELFPAY ==
--- NOTE | 2024-03-24 14:53 | DI.RAD_ITS ---
Exam(s) XR KNEE LT 4V AP,LAT,MERON,PAT EXAM: XR KNEE LT 4V AP,LAT,MERON,PAT CLINICAL HISTORY: evaluate pathology M25.562 PAIN LEFT KNEE. TECHNIQUE: 2D digital imaging was performed. COMPARISON: No exams were available for comparison FINDINGS: Four views No evidence of acute fracture but there does appear to be a joint effusion. There is mild narrowing of the medial joint space. No osteophytes. Lateral compartment exhibits nor mal height. Some degenerative changes evident in the medial aspect of the patellofemoral compartment . Also it may be an osteochondral defect versus degenerative subarticular cysts at this level on the patellar side. In addition, there is subarticular lucency in the inner aspect of the medial femoral condyle seen on the frontal weight-bearing view which measures 1.2 by 1.3 cm. Possibly a degenerati ve subarticular cyst versus other pathology. IMPRESSION: No fractures evident degenerative changes in the medial and patellofemoral compartments with other fi ndings as above.. Joint effusion noted. If clinically indicated follow-up MRI for added sensitivity /specificity can be performed. DATA REPOSITORY: RADIATION DOSE DELIVERED:
== END ==
PROVIDERS: PCP Nurse Practitioner Family; Visit Provider Nurse Practitioner Family
DX: M25.562 Pain in left knee (principal); M25.462 Effusion, left knee
CPT/HCPCS: 73564

== ENCOUNTER → 2024-03-31 05:40 | Outpatient (CLI) | payer MEDICARE, BC, SELFPAY ==
--- NOTE | 2024-03-31 11:14 | DI.RAD_ITS ---
Exam(s) XR ABDOMEN FLAT PLATE EXAM: 2D digital imaging was performed. CLINICAL HISTORY: MRI PRE screen, Z01.89 SCREEN FOR METAL ABD CLIPS PRIOR TO MRI. COMPARISON: No exams were available for comparison TECHNIQUE: Supine views of the abdomen performed. FINDINGS: BOWEL GAS PATTERN: Nondistended. Normal quantity of stool. CALCIFICATIONS: No radiopaque calcifications. OSSEOUS STRUCTURES: Degenerative changes in the spine with endplate osteophytes. Disc space narrowin g greatest at L 4 5. Visualized portions of the chest: Heart mildly enlarged. Lung bases are clear. OTHER FINDINGS: None no metallic densities are present in the field of view. IMPRESSION: 1. Nonobstructive bowel gas pattern. 2. No metallic clips identified. DATA REPOSITORY: RADIATION DOSE DELIVERED:
== END ==
PROVIDERS: PCP Nurse Practitioner Family; Visit Provider Physician Assistant
DX: Z01.89 Encounter for other specified special examinations; R14.3 Flatulence
CPT/HCPCS: 74018

== ENCOUNTER 2024-04-25 02:24 | Outpatient (CLI) | payer MEDICARE, BC, SELFPAY ==
--- NOTE | 2024-04-25 06:30 | DI.MRI_ITS ---
Exam(s) MR LOWER JOINT LT WO/W EXAM: MR LOWER JOINT LT WO/W CLINICAL HISTORY: joint effusion of knee,eval path,m25.463 TECHNIQUE: Multiplanar multisequence MRI of the knee was performed. COMPARISON: CR XR KNEE LT 4V AP,LAT,MERON,PAT from 03/24/2024 FINDINGS: EFFUSION: There is a prominent knee joint effusion and there is a Brandt's cyst in the medial poplitea l fossa which measures 5 cm length an may be partially ruptured as there is some fluid seen over the superior aspect of the subjacent medial gastrocnemius. MARROW:There is no evidence of fracture, bone contusion, nor osteochondral defects. Previously descr ibed lucency in the medial femoral condyle does not appear to exhibit abnormality on the MRI. There is a degenerative subarticular cyst in the posterior aspect of the lateral tibial plateau which measu res 8 x7 x 7 mm. Sub chondral marrow edema is noted in the medial femoral condyle (see below). PATELLOFEMORAL COMPARTMENT: Mild increased signal is seen in the inferior quadriceps tendon but no hi gh-grade tear. Patellar ligament appears intact. There is significant thinning of the retropatellar cartilage over the medial facet with mild subjacen t bone edema in the posterior medial patella. Only minimal narrowing of the retropatellar cartilage over the lateral facet noted.There is no intraosseous signal to suggest recent patellar dislocation. There are no patellar retinacular tears. CRUCIATE LIGAMENTS: The anterior cruciate ligament is intact.The posterior cruciate ligament is intac t. MEDIAL COMPARTMENT/MEDIAL MENISCUS: There is a tear of the posterior horn of the medial meniscus at t he root level. There is prominent myxoid degeneration signal in the outer 3rd of the posterior horn. The anterior horn of the medial meniscus appears intact and there is no meniscocapsular separation. . There is significant thinning of the articular cartilage over high the main weight-bearing surface of the medial condyle and there is subarticular edema in the outer 3rd evident. No true osteochondral defect evident. No marginal osteophytes evident. MEDIAL COLLATERAL LIGAMENT: Intact LATERAL COMPARTMENT/LATERAL MENISCUS: There is myxoid degeneration signal in the anterior and posteri or horns. Abnormal signal does not appear to violate an articular surface in 2 planes. There is min imal cartilage thinning in the lateral compartment. No osteochondral defects. No osteophytes. ILIOTIBIAL BAND: Intact LATERAL COLLATERAL LIGAMENT COMPLEX: The fibular collateral ligament is intact. The biceps femoris t endon is intact.Popliteus muscle and tendon are intact. IMPRESSION: 1. There is significant tear in the posterior horn of the medial meniscus at the level the root of th e posterior horn. There is prominent myxoid degeneration signal in the outer half of the posterior h orn. No meniscocapsular separation. There is cartilage thinning and subarticular bone edema in the overlying medial femoral condyle. No significant osteophytes. 2. No obvious tears of the lateral meniscus and only minimal degenerative change in the lateral wander rtment. No bone edema in the lateral compartment 3. There are no cruciate nor collateral ligament tears. 4. There is significant chondromalacia in the patellofemoral compartment over the medial patellar fac et. 5. Moderate-large size knee joint effusion evident. There is also a Brandt cyst in the medial poplit eal fossa which is septated and measures approximately 5 cm length (1 cm AP x 1 cm wide), as describe d above. DATA REPOSITORY:
[2024-04-25] MEDS: Normal Saline Flush 10 ML SYR IVP (09:12)
[2024-04-25] MEDS: Gadoterate meglumine 20 ML SYRINGE IVP (09:13)
== END 2024-04-25 02:44 ==
LOC: DI 02:24
PROVIDERS: PCP Nurse Practitioner Family; Visit Provider Nurse Practitioner Family
DX: M25.462 Effusion, left knee (principal)
CPT/HCPCS: 73723

== ENCOUNTER → 2024-06-03 08:19 | Outpatient (BNVA) | payer MEDICARE, BC, SELFPAY | PROVIDERS: PCP Nurse Practitioner Family; Referring Provider Nurse Practitioner Family | DX: M23.92 Unspecified internal derangement of left knee (principal) | CPT/HCPCS: 20610; 99213; J1010 ==

== ENCOUNTER 2024-07-25 14:29 | Outpatient (CLI) | payer MEDICARE, BC, SELFPAY ==
--- NOTE | 2024-07-25 08:38 | DI.RAD_ITS ---
Exam(s) XR KNEE RT 4V AP,LAT,MERON,PAT EXAM: XR KNEE RT 4V AP,LAT,MERON,PAT CLINICAL HISTORY: RIGHT KNEE PAIN. TECHNIQUE: 2D digital imaging was performed of the right knee. Four views obtained. Merchant, AP, la teral and PA tunnel views were obtained. COMPARISON: There are no priors for comparison. FINDINGS: BONES: No acute fracture is present. No bony destructive lesion is seen. Small enthesophytes are seen at the anterior patella. JOINTS: There is marked narrowing of the medial femoral tibial joint. Small osteophytes are seen inv olving the lateral femoral tibial and patellofemoral joints. No joint effusion is seen. There are sm all well corticated osseous densities which likely reflect loose bodies. SOFT TISSUE: Ossifications are seen lateral to the lateral femoral condyle which appear chronic. IMPRESSION: Marked osteoarthritis of the right knee, particularly involving the medial femoral tibial joint. DATA REPOSITORY: RADIATION DOSE DELIVERED:
== END 2024-07-25 14:30 | disposition home or self-care (01) ==
LOC: DIORS 14:29
PROVIDERS: PCP Nurse Practitioner Family; Referring Provider Nurse Practitioner Family; Visit Provider Student in an Organized Health Care Education/Training Program
DX: M17.11 Unilateral primary osteoarthritis, right knee (principal)
CPT/HCPCS: 20610; J1010; 73564

== ENCOUNTER → 2024-09-26 08:21 | Outpatient (BNVA) | payer MEDICARE, BC, SELFPAY | PROVIDERS: PCP Nurse Practitioner Family; Referring Provider Nurse Practitioner Family | DX: M17.11 Unilateral primary osteoarthritis, right knee (principal) | CPT/HCPCS: 99213 ==

== ENCOUNTER 2024-11-28 01:50 | Outpatient (CLI) | payer MEDICARE, BC, SELFPAY ==
[2024-11-28 10:40] LABS: HCT 42.8 % (36.0-46.0); HGB 14.1 g/dL (11.2-15.7); MCH 30.7 pg (27.0-33.0); MCHC 32.9 % (32.0-36.0); MCV 93 fL (80-95); MPV 10.2 fL (8.0-11.0); Platelet Count 241 10^3/uL (130-400); RDW 13.3 % (11.7-14.6); RDW-SD 45.5 fL; WBC 7.24 10^3/uL (4.4-10.8)
[2024-11-28 11:21] LABS: Anion Gap 6.9 mmol/L (3-11); BUN 17 mg/dL (7-18); CO2 31.1 mmol/L (21.0-32.0); Calcium 9.8 mg/dL (8.5-10.1); Chloride 106 mmol/L (98-107); Estimated GFR 56.25 (mL/min/1.73m2); Glucose 111 mg/dL (74-106); Potassium 3.9 mmol/L (3.5-5.1); Sodium 144 mmol/L (136-145)
== END 2024-11-28 01:51 | disposition home or self-care (01) ==
LOC: LBO 01:50
PROVIDERS: PCP Nurse Practitioner Family; Visit Provider Student in an Organized Health Care Education/Training Program
DX: M17.11 Unilateral primary osteoarthritis, right knee (principal); Z01.818 Encounter for other preprocedural examination
CPT/HCPCS: 36415; 80048; 85027; 99024

== ENCOUNTER 2024-11-28 12:21 | Outpatient (CLI) | payer MEDICARE, BC, SELFPAY ==
--- NOTE | 2024-11-28 09:00 | DI.RAD_ITS ---
Exam(s) XR STANDING ALIGNMENT XR KNEE RT 1V EXAM: XR STANDING ALIGNMENT and XR knee RT 1 V CLINICAL HISTORY: PRE OP R TKA. TECHNIQUE: 2D digital imaging was performed. Six images were obtained. COMPARISON: CR XR KNEE LT 4V AP,LAT,MERON,PAT from 03/24/2024 CR XR KNEE RT 4V AP,LAT,MERON,PAT from 07/25/2024 FINDINGS: BONES: The hips are well maintained. In the right knee there is joint space narrowing of the patello femoral and medial femoral tibial joint. Osteophytes are seen at all 3 joint compartments. No joint effusion is seen. There is an enthesophyte at the superior patella. In the left knee, there is mil d joint space narrowing in the medial femoral tibial joint. The ankles are well maintained.There is no significant leg length discrepancy. There is an old sideplate and screws in the distal left fibul a. SOFT TISSUE: Dystrophic calcifications are again seen lateral to the distal femur. Vascular calcific ations are present. IMPRESSION: Osteoarthritis of the knees, right greater than left. DATA REPOSITORY: RADIATION DOSE DELIVERED:
== END 2024-11-28 12:22 | disposition home or self-care (01) ==
LOC: DIORS 12:21
PROVIDERS: PCP Nurse Practitioner Family; Visit Provider Physician Assistant
DX: M17.11 Unilateral primary osteoarthritis, right knee (principal); Z01.818 Encounter for other preprocedural examination
CPT/HCPCS: 36415; 80048; 85027; 99024; 73560; 77073

== ENCOUNTER 2024-12-13 08:15 | Day surgery (SDC) | payer MEDICARE, BC, SELFPAY ==
[2024-12-13] VITALS (28 sets, daily range): BP systolic 122–161; BP diastolic 39–72; PULSE 55–67; RESP 8–21; TEMP 36–36.7; O2SAT 84–97; BMI 35.7
--- NOTE | 2024-12-13 07:31 | W.PM.DSUDISC ---
Date of service: 12/13/24 Discharge Plan Disposition Patient Disposition: Home Condition: Good Discharge Details Reason For Visit: Right knee DJD Attending Provider: Caesar Louise Primary Care Provider: DARRON NICHOLSON Home Meds and New Rx's Prescriptions: New meloxicam 15 mg tablet 15 mg PO DAILY Qty: 30 1RF Rx Instructions: Take one tablet daily for pain and inflammation aspirin 81 mg tablet,delayed release (DR/EC) 81 mg PO BID 30 Days Qty: 60 0RF acetaminophen 500 mg tablet 1,000 mg PO Q8H PRN Qty: 90 0RF Rx Instructions: Take two tablets up to every 8 hours as needed for pain pantoprazole 40 mg tablet,delayed release (DR/EC) 40 mg PO DAILY Qty: 14 0RF dexamethasone 4 mg tablet 4 mg PO DAILY Qty: 2 0RF Rx Instructions: Take one tablet once daily for two days docusate sodium [Colace] 100 mg capsule 100 mg PO BID Qty: 28 0RF gabapentin 300 mg capsule 300 mg PO QHS Qty: 14 0RF Rx Instructions: Take one tablet at bedtime oxycodone 5 mg tablet 5 mg PO Q4H PRNQty: 18 0RF Rx Instructions: Take one tablet up to every 4 hours as needed for severe postoperative pain Continued losartan-hydrochlorothiazide [Hyzaar] 1 EACH tablet 1 tab-cap PO DAILY Qty: 30 cholecalciferol (vitamin D3) [Vitamin D3] 2,000 UNIT capsule 2,000 unit PO DAILY Qty: 30 Rosuvastatin Calcium 40 MG tablet 40 mg PO HS 90 Days Qty: 90 3RF metoprolol tartrate 25 mg tablet 25 mg PO BID Qty: 60 11RF Fish Oil 300 MG capsule 300 mg PO QAM Discontinued aspirin [Aspir-81] 81 MG tablet,delayed release (DR/EC) 81 mg PO HS acetaminophen 500 mg Tablet 1,000 mg PO DIRECTED PRN Discharge Instructions Additional Instructions: Total Knee Discharge Instructions Activity: The most important activity is to walk and to work on gentle motion (both flexion and extension). You should try to take short walks a few times a day. It is important that when resting you work on keeping the knee straight. Avoid putting a pillow behind the knee as this will encourage flexion. Work on range of motion exercises as provided by Physical Therapy. - Start outpatient physical therapy within 2 weeks. - You should wear the MARCELLO hose on both legs for 2 weeks. You may remove these at night. You may also use any compression sock in place of the MARCELLO hose. - Utilize [employer] to review exercises, see videos on exercises and obtain basic information pertaining to your surgery and your recovery. Dressing: Remove the Adeel wrap by 2 days after your surgery and put on the MARCELLO stocking given to you from the hospital. Keep the surgical dressing (underneath the ADEEL wrap) in place for at least one week. After the first week it may be removed and replaced with light gauze and tape or nothing. The wound and dressing may get wet after 3 days but avoid soaking the dressing or otherwise it will need to be changed. Many people prefer covering the dressing with cling wrap (saran wrap) to minimize it from getting soaked. If it gets wet, just pat dry. If it starts to peel off then it will need to be changed. Medications: - You should take Tylenol and anti-inflammatory Meloxicam as your primary pain control medications. If the Meloxicam is too expensive or not covered, please call the office for another alternative (Advil/Ibuprofen or Naproxen/Aleve) - You have been prescribed a stronger pain medication Oxycodone for breakthrough pain, take as needed as prescribed. - You have also been prescribed a stomach acid reduction agent Pantoprozole to help reduce stomach acid and reflux. - You have been prescribed Gabapentin to take at night for restlessness and nerve pain. - You will be taking Aspirin 81mg twice a day for DVT prevention unless instructed otherwise. - You have also been prescribed Decadron to take to control post-operative nausea and pain. You will start this tomorrow. - If you have constipation you should take Colace (which has been prescribed) or Miralax (which is available [id number]). It takes most people 3-4 days to have a bowel movement. Follow-up: 2 weeks If you have any acute concerns or questions, please do not hesitate to contact the office at [phone]. You may contact Dr. Louise with any questions after hours through the hospital at [phone] or on his cell phone at [phone]. Stand Alone Forms: Anesthesia Discharge Inst., Jocy.Nerve Block Instructions, Tanya Larsen ([facility]) Referrals: Caesar Louise MD [ [facility] STAFF PHYSICIAN] - 12/26/24 10:15 am Equipment/Supplies: Walker Activity:: Elevate Remove Dressings/Wound Care:: Do Not Remove Shower/Bathe:: Cover Diet:: As Tolerated Discharge Orders Discharge Orders: Discharge Order (Routine); Ordered 12/13/24 Ordered By: Annita Zhou
--- NOTE | 2024-12-13 08:44 | W.ANESPRE ---
General Info Date of Service Date Performed: 12/13/24 Height: 5 ft 4 in Weight: 94.4 kg Body Mass Index (BMI): 35.7 Surgical Procedure: Operation Date: 12/13/24 10:55 Proposed Procedure Side Surgeon p Knee Total Arthroplasty,Cemented Possible Right Caesar Louise MD s Knee Injection Left Caesar Louise MD Meds Allergies and Home Medications Allergies Allergy/AdvReac Type Severity Reaction Status Date / Time ibuprofen AdvReac Nausea/Irritated Verified 12/13/24 09:31 stomach Home Medication ?Medication ?Instructions ?Recorded omega-3 fatty acids 300 mg capsule 300 mg PO QAM 12/08/15 (Fish Oil) cholecalciferol (vitamin D3) 50 2,000 unit PO DAILY #30 tab-caps 11/26/16 mcg (2,000 unit) capsule (Vitamin D3) losartan 100 1 tab-cap PO DAILY #30 tab-caps 11/26/16 mg-hydrochlorothiazide 12.5 mg tablet (Hyzaar) metoprolol tartrate 25 mg tablet 25 mg PO BID #60 tab-caps 01/25/19 acetaminophen 500 mg tablet 1,000 mg (2 x 500 mg) PO Q8H PRN 12/13/24 pain #90 tabs aspirin 81 mg tablet,delayed 81 mg PO BID 30 days #60 tabs 12/13/24 release dexamethasone 4 mg tablet 4 mg PO DAILY #2 tabs 12/13/24 docusate sodium 100 mg capsule 100 mg PO BID #28 caps 12/13/24 (Colace) gabapentin 300 mg capsule 300 mg PO QHS #14 caps 12/13/24 meloxicam 15 mg tablet 15 mg PO DAILY #30 tabs 12/13/24 oxycodone 5 mg tablet 5 mg PO Q4H PRN #18 tabs 12/13/24 pantoprazole 40 mg tablet,delayed 40 mg PO DAILY #14 tabs 12/13/24 release Current Visit Medications: Current Medications Generic Name Dose Route Start Last Admin Trade Name Freq PRN Reason Stop Dose Admin Acetaminophen 1,000 mg 12/13/24 06:00 Acetaminophen 500 Mg Tab PO 12/13/24 23:59 PREOP NOEL Acetaminophen 1,000 mg 12/13/24 14:00 Acetaminophen 500 Mg Tab PO 01/12/25 13:59 TID NOEL Celecoxib 400 mg 12/13/24 06:00 Celecoxib 200 Mg Cap PO 12/13/24 23:59 PREOP NOEL Gabapentin 300 mg 12/13/24 06:00 Gabapentin 300 Mg Cap PO 12/13/24 23:59 PREOP NOEL Hydromorphone HCl 0.5 mg 12/13/24 07:29 Hydromorphone 2 Mg/Ml Syr IVP 01/12/25 07:28 Q2H PRN PRN Ringer's Solution 1,000 mls @ 80 mls/hr 12/13/24 06:00 IV 12/13/24 23:59 INFUSION NOEL Cefazolin Sodium/Dextrose 2 gm in 50 mls @ 100 mls/hr 12/13/24 06:00 Ancef Duplex IVPB 12/13/24 23:59 PREOP NOEL Tranexamic Acid/Sodium Chloride 1,000 mg in 100 mls @ 600 mls/hr 12/13/24 06:00 IVPB 12/13/24 23:59 DIRECTED NOEL Cefazolin Sodium/Dextrose 1 gm in 50 mls @ 100 mls/hr 12/13/24 08:00 Ancef Duplex IVPB 12/14/24 00:29 Q8H NOEL IV Miscellaneous Supplies 1 each 12/13/24 06:00 Iv Access IV 12/13/24 23:59 DIRECTED NOEL Oxycodone HCl 0 mg 12/13/24 07:29 Oxycodone 5 Mg Tab PO 01/12/25 07:28 Q3H PRN PRN Pain Sodium Chloride 0 ml 12/13/24 06:00 Normal Saline Flush 10 Ml Syr IV 12/13/24 23:59 PRN PRN Sodium Chloride 0 ml 12/13/24 06:00 Normal Saline 10 Ml Vial IJ 12/13/24 23:59 DIRECTED PRN Sterile Water 0 ml 12/13/24 06:00 Water,Injection,Sterile 10 Ml Vial IJ 12/13/24 23:59 DIRECTED PRN Tranexamic Acid 1,300 mg 12/13/24 07:29 Tranexamic Acid 650 Mg Tab PO 01/12/25 07:28 ONCE PRN postoperative PFSH Active Problems Active Problems: Problem Status Onset Code Osteoarthritis of right knee Chronic M17.11 Internal derangement of left knee Acute M23.92 Primary open-angle glaucoma, right eye, moderate stage Chronic H40.1112 Nuclear sclerotic cataract of right eye Resolved H25.11 Cortical cataract of right eye Resolved H26.9 Primary open-angle glaucoma, left eye, moderate stage Chronic H40.1122 Nuclear sclerotic cataract of left eye Resolved H25.12 Cortical cataract of left eye Resolved H26.9 Medical History Medical History History of benign breast biopsy right Hx of fracture of ankle left 2000 Cataract HLD (hyperlipidemia) HTN (hypertension) CAD (coronary artery disease) Surgical History Surgical History Status post cholecystectomy History of intestinal surgery clips for repair of rupture Hx of colonoscopy Hx of hysterectomy History of heart artery stent 2017 Tobacco Smoking/Tobacco Use Status: Never Alcohol Alcohol Intake: never Substance Use Substance use: Never Substance use type: does not use Vital Signs and Lab Results Vital Signs Most Recent Vital Signs in EMR: Most Recent Vital Signs Temp Pulse Resp BP Pulse Ox 36.1 C L 60 16 161/59 H 95 12/13/24 08:40 12/13/24 08:40 12/13/24 08:40 12/13/24 08:40 12/13/24 08:40 Lab Results Blood Type / Crossmatch: No Data to Display Complete Blood Count: White Blood Count 7.24 10^3/uL (4.4-10.8) 11/28/24 10:30 Red Blood Count 4.60 10^6/uL (3.93-5.22) 11/28/24 10:30 Hemoglobin 14.1 g/dL (11.2-15.7) 11/28/24 10:30 Hematocrit 42.8 % (36.0-46.0) 11/28/24 10:30 Platelet Count 241 10^3/uL (130-400) 11/28/24 10:30 Complete Metabolic Panel: Sodium 144 mmol/L (136-145) 11/28/24 10:30 Potassium 3.9 mmol/L (3.5-5.1) 11/28/24 10:30 Chloride 106 mmol/L (98-107) 11/28/24 10:30 Carbon Dioxide 31.1 mmol/L (21.0-32.0) 11/28/24 10:30 BUN 17 mg/dL (7-18) 11/28/24 10:30 Creatinine 1.0 mg/dL (0.55-1.02) 11/28/24 10:30 Est GFR (CKD-EPI 2020) 56.25 (mL/min/1.73m2) 11/28/24 10:30 Calcium 9.8 mg/dL (8.5-10.1) 11/28/24 10:30 Glucose 111 mg/dL (74-106) H 11/28/24 10:30 Liver Function Panel: No Data to Display Coagulation Panel: No Data to Display Cardiac Panel: No Data to Display Arterial Blood Gas: No Data to Display Venous Blood Gas: No Data to Display Pancreas Panel: No Data to Display Thyroid Panel: No Data to Display Infectious Disease: No Data to Display Blood Cultures: No Data to Display Toxicology Panel: No Data to Display Imaging and Studies Imaging and Studies Study information below may be from another EMR and interpreted by another provider. Please see original notes in EMR for more complete details. EKG Summary: 02/03/23 Conclusion Sinus rhythm...normal P axis, V-rate 50- 99 Otherwise normal ECG Stress Test Summary: 09/24/16 Impressions: Positive stress test after maximal exercise with reproduction of symptoms. Summary: 1. Myocardial perfusion imaging: There is a large sized, moderately intense, partially reversible defect involving the mid anterior and apical anterior, apical inferior, mid anterolateral, apical, apical lateral, and apical septal wall(s). and myocardial infarction and ischemia in the distribution of left anterior descending and left circumflex coronary artery. Overall ischemia: moderate. 2. The calculated left ventricular ejection fraction after stress: 51%. LV global systolic function is low normal. There is hypokinesis involving the apical wall(s) of the left ventricle. 3. Stress: The target heart rate was achieved. The heart rate response to stress is normal. There is a normal resting blood pressure with an appropriate response to stress. Stress-induced typical chest pain which resolved spontaneously. Exercise capacity is mildly diminished for age. Recommendations: 1. Cardiac catheterization should be performed in order to evaluate coronary artery disease. This procedure has been arranged and discussed with the patient. 2. Medical management is recommended. Cardiac Cath with stenting done 2017 Anesthesia Assessment and Plan Anesthesia History Personal History: No History of Anesthesia Complications Family History: No Family History of Anesthesia Complications Exercise Tolerance Exercise Tolerance: Metabolic Equivalents<4 Pertinent Negatives Pertinent Negatives: No Major Cardiovascular Symptoms or Complaints, No Major Pulmonary Symptoms or Complaints and No History of CVA/TIA Cardiac & Pulmonary Exam Cardiac Exam: Normal S1/S2 Heart Sounds Pulmonary Exam: Clear Bilateral Breath Sounds Cardiac and Pulmonary Comment:: Stents in 2017, no chest pain or SOB Implantable Cardiac Device Does patient have a Pacemaker or an ICD?: No Airway Exam Known Difficult Airway: No Mallampati Class: 3 Mouth Opening: Narrow (< 3cm) Thyromental Distance: Greater than 3 cm Neck Range of Motion: Full ROM Neck Circumference: Normal Teeth Condition: Normal Dentition ASA Classification ASA Score: ASA 3 Emergency Case?: No NPO Status NPO Status: NPO Clears >2 hours, Solids >8 hours Anesthesia Plan Resuscitation Status: Full Code Anesthesia Technique: Spinal Anesthesia Airway Planned: Natural Airway Pain Management: Surgeon and patient request nerve block Monitors Used: Standard Monitors
[2024-12-13] MEDS: Acetaminophen 500 MG TAB 1000 MG PO (09:01)
[2024-12-13] MEDS: Celecoxib 200 MG CAP 400 MG PO (09:01)
[2024-12-13] MEDS: Gabapentin 300 MG CAP PO (09:01)
[2024-12-13] MEDS: Lactated Ringers 1,000 ML 80 ML IV (09:18)
--- NOTE | 2024-12-13 10:02 | W.ANESNERVE ---
Nerve Block Single Injection Procedure Date and Time Date Performed: 12/13/24 Procedure Start: 09:43 Location Where Procedure Performed Procedure Location: Day Surgery Unit Reason Performed: Postoperative Analgesia Requesting Provider: Caesar Louise Timeout Performed Timeout Performed: Yes Monitoring Used ECG, Blood Pressure, SpO2 and See EMR for corresponding vital signs Sterility Sterility: Hand Hygiene, Surgical Cap, Surgical Mask, Sterile Gloves, Sterile Drape/Sheet and Chlorhexidine Sedation Given During Procedure Sedation Given (Indicate Dose Given): Versed IV Dose:: 2 mg Patient Mental Status Patient Mental Status: Sedate with meaningful communication Nerve Block 1st Nerve Block: Laterality: Right Block Type: Adductor Canal Ultrasound Image Saved?: Yes Needle / Catheter Used: 100mm SonoPlex II Local Anesthetic Bolus (Indicate Dose Given): Lidocaine used for local infiltration of skin, Injected in 3-5ml increments after negative blood aspiration, Bupivacaine 0.25% Dose:: 10 ml and Exparel Dose:: 10 ml Additives (Indicate Dose Given): None Ultrasound: Sterile probe cover and gel used Nerve Stimulator: Supplement to Ultrasound use and No twitch or parasthesia noted < 0.5 mA Paresthesia: None Procedure Tolerated: No Complications and Patient tolerated well Procedure Outcome: Successful Performed By: Lidia Scott
[2024-12-13] MEDS: ceFAZolin 2 GM/50 ML BAG IVPB (10:03)
[2024-12-13] MEDS: TRANEXAMIC ACID/SOD. CHL. 1,000 MG/100 ML BAG 600 MG IVPB (10:20)
[2024-12-13] MEDS: methylPREDNISolone ACETATE 80 MG/ML VIAL (10:24)
[2024-12-13] MEDS: Bupivacaine 0.5% Pres-Free 30 ML VIAL (10:24)
[2024-12-13] MEDS: fentaNYL 100 MCG/2 ML VIAL IVP (12:35)
--- NOTE | 2024-12-13 13:15 | ROE_ITS ---
Operative Note Operative Note PRE-OP DIAGNOSIS: Right Knee Osteoarthritis Left Knee Osteoarthritis POST-OP DIAGNOSIS: same PROCEDURE: Right Total Knee Replacement Left Knee Injection SURGEON: Caesar Louise RESIDENTIAL DESIGNER: Annita Zhou ANESTHESIA TYPE: Spinal Refer to Anesthesia Record ESTIMATED BLOOD LOSS: 150 PATHOLOGY: none sent COMPLICATIONS: None Patient was transported to: PACU Patient's condition: stable Implants: 1. Depuy Attune Cruciate Retaining Femoral Component, Size 6 2. Depuy Attune Fixed Bearing Tibial Component, Size 6 3. Depuy Attune 6x5 CR,FB Poly 4. Depuy Attune Patellar Component, Size 38 Indications: I have seen Cathryn in clinic for symptoms of knee arthritis, confirmed with radiographic findings. She has exhausted nonoperative methods and was having significant limitations in daily function and desired better function and less pain. I discussed the technical details of a knee replacement. I explained the risks of the procedure to include, but not limited to, bleeding, infection, pain, stiffness, fracture, damage to nerves and vessels, damage to muscles and tendons, loosening, need for repeat procedure, blood clot and cardiopulmonary demise. Despite these risks, Cathryn elected to proceed. Due to pain in the left knee with known arthritis she also elected to proceed with an injection of the left knee. Findings: There was significant signs of arthritis throughout the knee. Procedure Description: Cathryn was greeted in the preoperative holding area where the correct side was identified and marked. The consent was reviewed with the patient and signed. The history and physical was updated. All questions were answered. Preoperative mediacations were administered: Acetaminophen 1000mg, Celebrex 400mg, and Gabapentin 300mg. An adductor canal block was then administered by the anesthesia team in the DSU. She was taken back to the operating room. A spinal anesthestic was then administered. The patient was placed into the supine position on the operating room table. Posts were placed for positioning during the procedure. All bony prominences were well padded. Prophylactic antibiotics in the form of Cefazolin were administered. 1g of Tranxemic Acid was given intravenously within 30 minutes of incision. A timeout to confirm correct identity, side and site, procedure, allergies, anesthesia, and medical concerns was performed. I then performed the injection of the left knee. ChloraPrep was used to sterilize the skin over the lateral border of the knee. Using a 22-gauge needle then injected 8 cc of 0.25% bupivacaine and 80 mg of Depo-Medrol without resistance. A Band- Aid was applied. Next, the right leg was then prepped with Chloraprep and draped in a standard fashion with impervious stockinette and extremity drape. A second prep with Chloraprep was performed prior to placing Ioband. With the knee in some flexion, a midline incision was made overlying the knee. Full thickness skin flaps were raised once the extensor mechanism was encountered. These were raised medially and laterally. Any bleeding was controlled with electrocautery. Once the extensor mechanism was fully exposed, a medial parapatellar arthrotomy was performed in a flexed position. All bleeding from the arthrotomy and the geniculate arteries was coagulated. A medial subperiosteal peel was performed with electrocautery to the midcoronal plane. Due to the significant varus d eformity the entire medial tibial plateau was exposed. The fat pad was removed while keeping the patellar tendon protected. The anterior distal femur synovium was removed for later visualization. The ACL and PCL were resected and the anterior horn of the lateral meniscus was transected. The knee was then flexed with the patella everted. Large osteophytes from the tibia were removed. Large osteophytes from the femur were removed. Using a step drill, and based on preoperative templating, the femoral canal was entered. This was done with a step drill without any difficulty. The intrame dullary distal femoral cut guide was inserted, set to a 6 degree valgus cut and 9mm cut thickness. The distal femoral cut guide was then held in position and pinned. With the soft tissues protected, the distal cut was performed. This was passed over a few times to ensure a planar cut. I then turned attention to the tibia. The extramedullary guide was placed onto the leg. The distal aspect was slid medial to adjust for position of center of ankle and stay in line with shaft of the tibia. Approximately 3-5 degrees of posterior slope was kept in the proximal cutting guide. The center of the guide was aligned with the PCL. The stylus was used to assess cut thickness. The medial side, most involved side, was set for a 6mm cut, corresponding to 9mm laterally. This was then held in po sition and pinned into place with 2 additional pins and a cross pin for stability. The medial and lateral collateral ligaments were protected and the cut was performed. With this completed, it was assessed and noted to be of appropriate dimensions. The guide was removed. A spacer block was inserted and the knee was brought into extension. The 5mm spacer block provided full extension, without hyperextension and with stability of both the medial and lateral collateral ligaments was assessed. The pins from the femur and the tibia were then removed. The distal femur was then sized. The anterior stylus was placed onto the lateral ridge of the anterior femur. This indicated a size 6 femur. The external rotation of the guide was adjusted to 3 degrees to match the epicondylar axis, perpendicular to Dupage?s line. The 4-in-1 cutting guide was the placed. The posterior medial femur cut was evaluated and appeared of good thickness. The spacer block was inserted underneath the cutting guide and stability was confirmed in 90 degrees of flexion. An ángela wing was used to confirm appropriate position of the anterior cut to avoid notching. This cutting guide was ensured to be flush on the cut surface and then pinned into place with headed pins. While protecting the soft tissues, quad tendon, and collateral ligaments, the anterior and posterior cuts were performed with a saw. The central two pins were removed and the posterior and anterior chamfers were cut next. The notch-cutting guide was placed. This was pinned to lateralize the femoral component as much as possible while keeping it flush on the cut surface. This was then pinned into position. A reciprocating saw was used to make the small notch cut. A trial CR femoral component was then inserted, impacted down to the cut surfaces, and the lug holes were drilled. A provisional trial tibial component was placed and the knee was brought through range of motion. There was noted to be excellent extension and flexion. There was no significant instability. The patella was tracking without thumbs. The tibial cut surface was fully exposed. The medial and lateral menisci were removed. The tibia was then sized as a 6. The tibia had been previously marked during trialing to correspond to the center of the tibial component to help with rotation. The trial was aligned to this harish, approximately rotated to the medial 1/3rd of the tibial tubercle. The trial was pinned into place. The tibia was prepared with a reamer and a keel punch. The knee was then brought into extension and the patella was measured as 23mm. Using the patellar clamp and cut guide, this was resected to a flat surface with at least 13mm of thickness remaining. The size 38 patella fit the best. This was oriented and then clamped into position. The lugs were drilled. The trial components were removed. The final components, except for the polyethylene were opened on the back table. The periosteal and capsular t issues, especially posteriorly, around the knee were then systematically injected with a periarticular cocktail consisting of 246mg of Ropivacaine, 0.5mg of Epinephrine, 0.08mg of Clonidine, and 30mg of Ketorolac, diluted to 100cc. The knee was thoroughly irrigated with a pulse lavage and dried. On the back table, with the implants opened, the cement was mixed. 2 batches of medium viscosity cement were prepared with vacuum assistance. After the cement was ready it was placed on to the back side of the tibial component. A small amount was placed onto the posterior flange of the femur. Cement was manual pressurized and impregnated into the cut surface of the tibia. The tibial component was then inserted into the cut surface and impacted into position. Excess cement was removed and the component was reimpacted. Again, excess cement was removed and our attention was then turned to the femur. The femoral cut surface was once again dried and cement was manually impacted into the cut surface. The femoral component was lined with the lug holes and impacted. Excess cement was removed. It was ensured to be down against the cut surface. The trial polyethylene was then inserted and the leg was brought out into full extension for the duration of the cement curing process, approximately 15min. Cement was lastly manually impacted into the cut surface of the patella and the patellar button was clamped into position and held. During this process attention was turned to the gutters of the knee and for all interfaces for any excess cement. While the cement was hardening, the knee was irrigated with Surgiphor Betadine solution. It was allowed to sit in the knee for 3 minutes and then it was thoroughly irrigated with saline. After the cement had finally cured, approximately 15min, the clamp was removed from the patella and the knee was taken through range of motion. A size 5mm polyethylene component provided the best range of motion and stability with less than 2mm gapping with medial and lateral stress and full extension without significant hyperextension. The patella was tracking with a no-thumbs technique. The trial poly was removed and once again the knee was checked for any loose, excess, or errant cement. The poly component was then inserted into position after cleaning and drying the tibial tray. The capsule was then reapproximated with a No. 1 Vicryl at multiple locations. The capsule was finally closed with a No. 2 Stratafix, barbed suture. The tourniquet was then released and the arthrotomy appeared watertight without significant bleeding. The second dosing of 1g TXA was started. Deep tissues were then reapproximated with 0 Vicryl and 2-0 Vicryl. The skin was closed with a running 3-0 Monocryl in a subcuticular fashion. This was reinforced with skin glue. A Mepilex silver dressing was applied along with a [id number] MADDY wrap. A CryoCuff was applied. Cathryn was transferred to the hospital bed without difficulty an suffering no apparent complication. She has a good prognosis. Physical therapy will start today and without restrictions, weight-bearing as tolerated. Aspirin 81mg BID will be used for DVT prophylaxis. Date of Procedure: 12/13/24
--- NOTE | 2024-12-13 14:26 | IN_ITS ---
PT Notes Visit Reasons: Right knee DJD Physical Therapy Day Surgery Initial Evaluation Date: 12/13/2024 Referring Doctor: Annita Zhou NP PT Orders: PT CONSULT:s/p Ortho Surgery Precautions: WBAT left lower extremity Patient Profile/Admitting Diagnosis: Patient is 84-year-old female presenting status post elective right TKA on 12/13/[address] Louise. Postop uncomplicated PMHX: History of benign breast biopsy right Hx of fracture of ankle left 2000 Cataract HLD (hyperlipidemia) HTN (hypertension) CAD (coronary artery disease) Surgical History (Updated 11/28/24 @ 09:56 by Annita Zhou) Status post cholecystectomy History of intestinal surgery clips for repair of rupture Hx of colonoscopy Hx of hysterectomy History of heart artery stent 2016 Social History/Home Situation: Patient resides with 1 level home 3 steps to enter with left rail then 1 step into kitchen. Patient independent with ADLs, ambulation, home management, meal prep. Equipment Owned/DME: FWW, cane Subjective: Patient reports she is feeling better knee is sore and is just concerned with how much she can weight-bear on her leg. Patient educated she is able to weight-bear as much she can tolerate Objective: [] General Observation: Female presenting semireclined in stretcher with Cryo/Cuff to right knee noted hard of hearing, wears glasses Mental Status: Alert and oriented x 4, cooperative, motivated to go home agreeable to participate in evaluation Pain: 3/10 right knee with meds ROM: [] Right Upper Extremity: WNL Left Upper Extremity: WNL Right Lower Extremity: Hip and ankle WNL; knee 5-95 degrees Left Lower Extremity: WFL Strength: [] Right Upper Extremity: 5/5 Left Upper Extremity: 5/5 Right Lower Extremity:Hip flexion: 3 -/5; hip abduction: 3 -/5; hip extension: 3 -/5; knee extension: 3/5; knee flexion: 2+/5 ankle DF: 3/5 ; ankle PF: 3/5 Left Lower Extremity: Grossly 5/5 Sensation: Intact to touch and pain right lower extremity Bed Mobility/Transfers: [] Supine to sit supervision Sit to stand supervision cues for hand placement Stand to sit supervision cues for hand placement Bed to chair [supervision with FWW Gait: Ambulates with FWW 150 feet step to pattern reduced knee flexion on the right during swing phase cues to activate quad during weightbearing right lower extremity, decreased step length reduced step height excessive lateral weight shift to advance right lower extremity Stairs: 5 steps with rail on left and cane contact-guard assist step to pattern Balance: [] Static Sitting: Normal Dynamic Sitting: Good Static Standing: Good with FWW Dynamic Standing: Fair plus with FWW Special Tests: [] Mobility Limitations Standardized Measure [] [facility] AM-PAC 6 clicks Basic Mobility Inpatient Short Form: [] Raw Score: 22 CMS Score 20.91% Informed Consent/Education: Patient instructed in purpose of PT consult. Packet containing TKA exercise protocol has been given to patient. Education and training on initial set of exercises that can be done at home have been completed with patient. Assessment: Patient is an 84-year-old female who presents with clinical signs and symptoms consistent with current/admitting diagnoses that have resulted to mobility limitations, gait instability, generalized weakness, and impairment of motor control as demonstrated by the following impairment level findings: 1. Decreased strength to right knee major muscle groups 2. Impaired standing balance 3. Limitation of joint range of motion in right knee 4. Impaired functional activity tolerance and standing 5. Pain right knee Impairments are contributing to the following functional limitations: 1. Inability to safely ambulate without assistive device 2. Increase completion time for mobility ADL performance 3. Increased fall risk 4. Difficulty performing stairs safely without assistance and device Patient is assessed as a low complexity based on the following: History: [] 84-year-old female with impairment level findings, functional limitations, and past medical history as indicated above Examination: Demonstrable impairment in strength, balance, and mobility level with underlying impairments and functional limitations as documented above Presentation: Stable Decision Making: Low Goals: N/A. PT evaluation and 1-2 treatment sessions only for functional mobility training using recommended AD and for HEP instruction. Plan of Care/Treatment Plan: N/A. PT evaluation and 1-2 treatment session only for functional mobility training using recommended AD and for HEP instruction. DISCHARGE RECOMMENDATIONS: Home with home exercise program and outpatient PT as scheduled TREATMENT CODE/TIME: 38883/1:51 PM?2:20 PM Thank you for the opportunity to participate in the care of this patient. Bridgette Warner, PT [facility]
[2024-12-13] MEDS: Tranexamic Acid 650 MG TAB 1300 MG PO (14:32)
--- NOTE | 2024-12-13 14:36 | W.ANESPOSTOP ---
Postoperative Evaluation Date, Time and Location Date Performed: 12/13/24 Time Performed: 14:36 Patient Location: Day Surgery Unit Vital Signs Most Recent Imported Vital Signs: Most Recent Vital Signs Temp Pulse Resp BP Pulse Ox 36.3 C L 67 16 152/63 H 97 12/13/24 13:40 12/13/24 13:40 12/13/24 13:40 12/13/24 13:40 12/13/24 13:40 Pain Score Most Recent Pain Score: Most Recent Pain Score Pain Level 2 12/13/24 13:40 Assessment Mental Status: Awake (Alert & Oriented to Patient Baseline) Airway and Respiratory Function: Patent airway with normal (patient baseline) respiratory exam Cardiovascular Function: Hemodynamically Stable Hydration Status: Adequately Hydrated Nausea & Vomiting: No Nausea or Vomiting Pain: Pain is tolerable per patient Peripheral Nerve Block: Regional nerve block not resolved at time of post operative discharge
== END 2024-12-13 14:55 | disposition home or self-care (01) ==
LOC: SUR 08:16
PROVIDERS: PCP Nurse Practitioner Family; Visit Provider Student in an Organized Health Care Education/Training Program
PROC: (CPT 27447; principal; 2024-12-13 10:45)
PROC: (CPT 27447; 2024-12-13 10:45)
DX: M17.11 Unilateral primary osteoarthritis, right knee (principal); G89.18 Other acute postprocedural pain
CPT/HCPCS: 27447; 64447; 97161; C1776; J0665; J0666; J0690; J1010; J1100; J2250; J2371; J2401; J2405; J2704; J3010

== ENCOUNTER 2024-12-26 10:31 | Outpatient (CLI) | payer MEDICARE, BC, SELFPAY ==
--- NOTE | 2024-12-26 10:00 | DI.RAD_ITS ---
Exam(s) XR STANDING ALIGNMENT XR KNEE RT 1V EXAM: XR STANDING ALIGNMENT and XR knee RT 1 V CLINICAL HISTORY: 1ST POST OP S/P R TKA. TECHNIQUE: 2D digital imaging was performed. Five images were obtained. COMPARISON: CR XR STANDING ALIGNMENT from 11/28/2024 CR XR KNEE RT 1V from 11/28/2024 FINDINGS: BONES: The hips are well maintained. Since the prior examination, the patient has undergone a right total knee arthroplasty. The orthopedic hardware appears in good position. No lucencies are seen ar ound the orthopedic hardware to suggest loosening. In the left knee, there is moderate narrowing of the medial joint compartment. There is an sideplate and screws seen in the distal left fibula.There is no significant leg length discrepancy. SOFT TISSUE: Normal. IMPRESSION: Interval placement of a right total knee arthroplasty. The orthopedic hardware appears in good posit ion. DATA REPOSITORY: RADIATION DOSE DELIVERED:
== END 2024-12-26 10:32 | disposition home or self-care (01) ==
LOC: DIORS 10:31
PROVIDERS: PCP Nurse Practitioner Family; Visit Provider Nurse Practitioner Family
DX: Z96.651 Presence of right artificial knee joint (principal); Z47.1 Aftercare following joint replacement surgery
CPT/HCPCS: 99024; 73560; 77073

== ENCOUNTER → 2025-01-30 10:50 | Outpatient (BNVA) | payer MEDICARE, BC, SELFPAY | PROVIDERS: PCP Nurse Practitioner Family; Referring Provider Nurse Practitioner Family; Visit Provider Student in an Organized Health Care Education/Training Program | DX: T84.82XA Fibrosis due to internal orthopedic prosthetic devices, implants and grafts, initial encounter (principal) | CPT/HCPCS: 99213 ==

== ENCOUNTER 2025-01-31 07:55 | Outpatient (CLI) | payer MEDICARE, BC, SELFPAY ==
--- NOTE | 2025-01-31 07:45 | RT.EKG_ITS ---
APPROVED REPORT Exam: Resting ECG Reason for Exam: CAD Patient Location: O HR:56 bpm ECG Measurements Heart Rate 56 AXIS MS 190 P 48 QRSd 83 QRS 22 QT 441 T 44 QTc 426 Conclusion Sinus rhythm...normal P axis, V-rate 50- 99 Normal Electrocardiogram
== END 2025-01-31 07:56 | disposition home or self-care (01) ==
LOC: DI.CARD 07:56
PROVIDERS: PCP Nurse Practitioner Family; Visit Provider Internal Medicine Cardiovascular Disease
DX: I25.10 Atherosclerotic heart disease of native coronary artery without angina pectoris (principal)
CPT/HCPCS: 93010

== ENCOUNTER → 2025-01-31 09:51 | Outpatient (BNVA) | payer MEDICARE, BC, SELFPAY | PROVIDERS: PCP Nurse Practitioner Family; Visit Provider Internal Medicine Cardiovascular Disease | DX: I25.10 Atherosclerotic heart disease of native coronary artery without angina pectoris (principal) | CPT/HCPCS: 99213; 93005 ==

== ENCOUNTER → 2025-02-20 11:06 | Outpatient (BNVA) | payer MEDICARE, BC, SELFPAY | PROVIDERS: PCP Nurse Practitioner Family; Referring Provider Nurse Practitioner Family; Visit Provider Student in an Organized Health Care Education/Training Program | DX: M23.92 Unspecified internal derangement of left knee (principal); Z47.1 Aftercare following joint replacement surgery; Z96.651 Presence of right artificial knee joint | CPT/HCPCS: 99213 ==

== ENCOUNTER → 2025-03-17 10:40 | Outpatient (BNVA) | payer MEDICARE, BC, SELFPAY | PROVIDERS: PCP Nurse Practitioner Family; Referring Provider Nurse Practitioner Family; Visit Provider Physician Assistant | DX: M23.92 Unspecified internal derangement of left knee (principal); M17.12 Unilateral primary osteoarthritis, left knee | CPT/HCPCS: 20610; J1010 ==

== ENCOUNTER → 2025-04-17 10:13 | Outpatient (BNVA) | payer MEDICARE, BC, SELFPAY | PROVIDERS: PCP Nurse Practitioner Family; Referring Provider Nurse Practitioner Family; Visit Provider Physician Assistant | DX: T84.82XA Fibrosis due to internal orthopedic prosthetic devices, implants and grafts, initial encounter (principal) | CPT/HCPCS: 99213 ==

== ENCOUNTER → 2025-05-17 08:58 | Outpatient (BNVA) | payer MEDICARE, BC, SELFPAY | PROVIDERS: PCP Nurse Practitioner Family; Referring Provider Nurse Practitioner Family; Visit Provider Physician Assistant | DX: Z47.1 Aftercare following joint replacement surgery (principal); Z96.651 Presence of right artificial knee joint; M70.51 Other bursitis of knee, right knee | CPT/HCPCS: 20610; J1010 ==

== ENCOUNTER 2025-06-19 12:22 | Outpatient (CLI) | payer MEDICARE, BC, SELFPAY ==
--- NOTE | 2025-06-19 11:15 | DI.RAD_ITS ---
Exam(s) XR KNEE RT 3V AP,LAT,MERON EXAM: XR KNEE RT 3V AP,LAT,MERON CLINICAL HISTORY: medial pain after TKA. TECHNIQUE: 2D digital imaging was performed. Three images were obtained. Merchant's, AP and lateral views were obtained. COMPARISON: CR XR KNEE RT 4V AP,LAT,MERON,PAT from 07/25/2024 CR XR KNEE RT 1V from 12/26/2024 CR XR STANDING ALIGNMENT from 12/26/2024 FINDINGS: BONES: There are stable post operative changes of a right total knee arthroplasty present. No fracture or dislocation. JOINTS: The orthopedic hardware is in good position. No evidence of hardware loosening. SOFT TISSUE: Normal. IMPRESSION: Stable right total knee arthroplasty. DATA REPOSITORY: RADIATION DOSE DELIVERED:
== END 2025-06-19 12:23 | disposition home or self-care (01) ==
LOC: DIORS 12:22
PROVIDERS: PCP Nurse Practitioner Family; Referring Provider Nurse Practitioner Family; Visit Provider Student in an Organized Health Care Education/Training Program
DX: T84.84XA Pain due to internal orthopedic prosthetic devices, implants and grafts, initial encounter (principal); M70.51 Other bursitis of knee, right knee
CPT/HCPCS: 99214; 73562

== ENCOUNTER → 2025-07-19 02:03 | Outpatient (CLI) | payer MEDICARE, BC, SELFPAY ==
--- NOTE | 2025-07-19 06:30 | DI.NM_ITS ---
Exam(s) NM BONE SCAN 3 PHASE EXAM: NM BONE SCAN 3 PHASE CLINICAL HISTORY: rt knee pain due to prosthetic device, ? loosening prosthetic device,T84.84. TECHNIQUE: Injected Dose: 20 mCi Tc-99m MDP COMPARISON: Recent CT scans reviewed. FINDINGS: Flow phase: Appears symmetric. No abnormal periprosthetic hyperemia. Blood Pool phase: Photopenic zone in the right knee consistent with the components of the prosthesis. No abnormal uptake in the right knee on the blood pool phase images. No significant uptake in the opposite-left knee. Delayed phase: There is uptake subjacent to both sides of the tibial component and the lateral aspect of the femoral component. Incidentally noted is some focal uptake in the medial compartment of the opposite-left knee consistent with degenerative change. IMPRESSION: 1. On the delayed 3.5 hour images there is abnormal radiopharmaceutical uptake subjacent to both the medial and lateral aspects of the tibial plateau component. This finding is consistent with increased bone turnover which may be associated with loosening of the prosthesis. Please note that there is a certain lack of specificity with this type of imaging as there can be an element of normal bone remottling for up to 5 years after a total knee arthroplasty. Other consideration for false-positive may be due to heterotopic ossification as is possibly the case here lateral to the femoral component (as described above) DATA REPOSITORY:
--- NOTE | 2025-07-19 06:30 | DI.CT_ITS ---
Exam(s) CT LOWER EXTREMITY RT WO EXAM: CT LOWER EXTREMITY RT WO CLINICAL HISTORY: R KNEE PAIN due to prosthetic device, ?LOOSENING prosthetic device,T84.84xa. TECHNIQUE: Imaging Protocol: Axial computed tomography images with coronal and sagittal reformatted images were created and reviewed. Both conventional and iMar performed CONTRAST MATERIAL: Intravenous: None COMPARISON: CR XR KNEE RT 3V AP,LAT,MERON from 06/19/2025 FINDINGS: There is a small effusion in the suprapatellar bursa. Bones: No evidence of fracture. No obvious hardware loosening.. No evidence of osteomyelitis. No obvious abnormal soft tissue findings. IMPRESSION: No evidence of fracture and no evidence of obvious prosthesis loosening. RADIATION DOSE DELIVERED: 236.2mGy.cm Total DLP DATA REPOSITORY: All CT scans at this facility are submitted to the National Radiology Data Registry (NRDR) Dose Index Registry (DIR) with the [employer] ([employer]). RADIATION OPTIMIZATION: All CT scans at this facility use at least one of these dose optimization techniques: automated exposure control; mA and/or kV adjustment per patient size (includes targeted exams where dose is matched to clinical indication); or iterative reconstruction.
[2025-07-19 08:29] LABS: ESR 14 mm/hr (0-30)
[2025-07-19 08:55] LABS: C-Reactive Protein < 0.50 mg/dL (<=0.50)
== END ==
LOC: DI 06:37
PROVIDERS: PCP Nurse Practitioner Family; Visit Provider Student in an Organized Health Care Education/Training Program
DX: T84.012A Broken internal right knee prosthesis, initial encounter (principal)
CPT/HCPCS: 85652; 73700; 78315; 86140

== ENCOUNTER → 2025-07-24 14:02 | Outpatient (BNVA) | payer MEDICARE, BC, SELFPAY | PROVIDERS: PCP Nurse Practitioner Family; Referring Provider Nurse Practitioner Family; Visit Provider Student in an Organized Health Care Education/Training Program | DX: T84.84XA Pain due to internal orthopedic prosthetic devices, implants and grafts, initial encounter (principal) | CPT/HCPCS: 99214 ==